=== PATIENT | female | born 1975 | race Two or more races ===

== ENCOUNTER 2019-07-12 17:27 | Emergency (ER) | payer MEDICAID, OTHER ==
[~2019-07-12] VITALS: Ht 165.1 cm; Wt 88.6 kg
[2019-07-12] MEDS ORDERED: SODIUM CHLORIDE 0.9% 1,000 ML IV ONE ×2 (19:00→21:30)
[2019-07-12 19:05] LABS: Basophils # (auto) 0 uL; Basophils % (auto) 0.4 % (0.0-2.0); Eosinophils # (auto) 0 uL; Eosinophils % (auto) 0.4 % (0.0-7.0); Hematocrit 39.5 % (36.0-46.0); Hemoglobin 13.4 g/dL (12.2-16.2); Lymphocytes % (auto) 20.3 % (10.0-50.0); Mean Corpuscular Hgb Conc. 33.8 g/dL (32.0-36.0); Mean Corpuscular Volume 85.8 fL (80.0-100.0); Monocytes # (auto) 0.6 uL; Monocytes % (auto) 5.6 % (0.0-12.0); Neutrophils # (auto) 7.3 uL; Neutrophils % (auto) 73.3 % (37.0-80.0); Nucleated Red Blood Cells % 0.1 %; Platelet Count (auto) 256 10^3/uL (140-450); Red Cell Distribution Width 14.5 % (11.8-14.3)
[2019-07-12 19:28] LABS: Albumin 3.7 g/dL (3.4-5.0); Anion Gap 8 (5-15); Blood Alcohol < 3.0 mg/dL (0-5); Blood Urea Nitrogen 18 mg/dL (7-18); Calcium 8.3 mg/dL (8.5-10.1); Carbon Dioxide 24 mmol/L (21-32); Chloride 103 mmol/L (98-107); Glucose 362 mg/dL (74-106); Potassium 3.9 mmol/L (3.5-5.1); Sodium 135 mmol/L (136-145)
[2019-07-12 19:32] LABS: Alanine Aminotransferase 50 U/L (13-56); Alkaline Phosphatase 204 U/L (45-117); Aspartate Aminotransferase 32 U/L (15-37); BUN/Creatinine Ratio 24.3; Bilirubin, Total 0.2 mg/dL (0.2-1.0); GFR African American 109 mL/min; GFR Non-African American 90 mL/min; Total Protein 7.6 g/dL (6.4-8.2)
[2019-07-12 23:04] LABS: Urine Bacteria FEW /hpf (None Seen); Urine Blood Negative /uL (Negative); Urine Specific Gravity 1.031 (1.001-1.035); Urine WBC 1 /hpf (0 - 5)
[2019-07-12 23:13] LABS: Alcohol, Urine < 3.0 mg/dL (0-5); Amphetamine Screen, Urine POSITIVE (NEGATIVE); Barbiturate Scree,Urine NEGATIVE (NEGATIVE); Benzodiazephine Screen, Urine NEGATIVE (NEGATIVE); Cannabinoid Screen, Urine POSITIVE (NEGATIVE); Cocaine Screen, Urine NEGATIVE (NEGATIVE); Opiate Scree,Urine NEGATIVE (NEGATIVE); Phencyclidine Screen, Urine NEGATIVE (NEGATIVE)
[2019-07-12 23:45] LABS: Urine Pregnacy Test Negative (Negative)
[2019-07-13 00:45] VITALS: BP 145/87
== END 2019-07-13 00:47 ==
LOC: ER 17:31
DX: E11.65 Type 2 diabetes mellitus with hyperglycemia (principal); F41.9 Anxiety disorder, unspecified; Z91.14 Patient's other noncompliance with medication regimen
CPT/HCPCS: 36415; 80053; 80307; 80320; 81001; 81025; 82010; 82962; 85025; 96360; 96361; 99283; J7030

== ENCOUNTER 2021-03-07 16:43 | Emergency (ER) | payer MEDICAID ==
[~2021-03-07] VITALS: Ht 165.1 cm; Wt 104.3 kg
[2021-03-07 16:43] VITALS: BP 132/86
== END 2021-03-07 19:11 | disposition home or self-care (01) ==
LOC: ER 16:43
DX: S70.262A Insect bite (nonvenomous), left hip, initial encounter (principal); E11.9 Type 2 diabetes mellitus without complications; E66.9 Obesity, unspecified; Z68.38 Body mass index [BMI] 38.0-38.9, adult; W57.XXXA Bitten or stung by nonvenomous insect and other nonvenomous arthropods, initial encounter; Y93.89 Activity, other specified; Y92.89 Other specified places as the place of occurrence of the external cause; Y99.8 Other external cause status

== ENCOUNTER 2021-09-15 01:21 | Emergency (ER) | payer MEDICAID ==
[~2021-09-15] VITALS: Ht 165.1 cm; Wt 90.7 kg
[2021-09-15] MEDS ORDERED: CLIN300C8 PO (01:45)
[2021-09-15] MEDS ORDERED: IBUP800T27 PO (01:45)
[2021-09-15 02:33] VITALS: BP 162/99
== END 2021-09-15 02:37 | disposition home or self-care (01) ==
LOC: ER 01:26
DX: L02.212 Cutaneous abscess of back [any part, except buttock and flank] (principal); E11.9 Type 2 diabetes mellitus without complications; Z79.1 Long term (current) use of non-steroidal anti-inflammatories (NSAID); Z79.2 Long term (current) use of antibiotics

== ENCOUNTER 2022-01-05 00:28 | Emergency (ER) | payer MEDICAID ==
[~2022-01-05] VITALS: Ht 165.1 cm; Wt 95.3 kg
[~2022-01-05 00:28] MED LIST: CLIN300C8 PO; IBUP800T27 PO
[2022-01-05 06:42] VITALS: BP 142/85
[2022-01-05] MEDS ORDERED: cefTRIAXone SOD 1,000 MG VL IM ONE (06:45)
[2022-01-05] MEDS ORDERED: ACETAMINOPHEN 500 MG TAB PO ONE (06:45)
[2022-01-05] MEDS ORDERED: CEPH500C PO (06:59)
[2022-01-05] MEDS ORDERED: ACET-1080 PO (06:59)
== END 2022-01-05 07:16 | disposition home or self-care (01) ==
LOC: ER 00:28
DX: S20.162A Insect bite (nonvenomous) of breast, left breast, initial encounter (principal); E11.9 Type 2 diabetes mellitus without complications; F17.210 Nicotine dependence, cigarettes, uncomplicated; Z79.2 Long term (current) use of antibiotics; Z79.1 Long term (current) use of non-steroidal anti-inflammatories (NSAID); Z79.899 Other long term (current) drug therapy; W57.XXXA Bitten or stung by nonvenomous insect and other nonvenomous arthropods, initial encounter; Y93.89 Activity, other specified; Y92.89 Other specified places as the place of occurrence of the external cause; Y99.8 Other external cause status
CPT/HCPCS: 96372; 99283; J0696

== ENCOUNTER 2022-11-04 18:49 | Emergency (ER) | payer MEDICAID ==
[~2022-11-04] VITALS: Ht 165.1 cm; Wt 96.7 kg
[~2022-11-04 18:49] MED LIST changes: +ACET-1080 PO; +CEPH500C PO
[2022-11-04 18:50] VITALS: BP 148/96
[2022-11-04] MEDS ORDERED: LIDOCAINE 1% HCL (LOCAL ANESTH.) INJ 20ML MDV IJ ONE (20:45)
[2022-11-04] MEDS ORDERED: CEPH250C28 PO (22:06)
[2022-11-04] MEDS ORDERED: IBUP800T26 PO (22:08)
== END 2022-11-04 22:45 | disposition home or self-care (01) ==
LOC: ER 18:49
DX: S81.811A Laceration without foreign body, right lower leg, initial encounter (principal); E11.9 Type 2 diabetes mellitus without complications; F17.210 Nicotine dependence, cigarettes, uncomplicated; Z79.1 Long term (current) use of non-steroidal anti-inflammatories (NSAID); Z79.2 Long term (current) use of antibiotics; Z79.899 Other long term (current) drug therapy; W01.118A Fall on same level from slipping, tripping and stumbling with subsequent striking against other sharp object, initial encounter; Y93.89 Activity, other specified; Y92.89 Other specified places as the place of occurrence of the external cause; Y99.8 Other external cause status
CPT/HCPCS: 12002; 99283; J2001

== ENCOUNTER 2023-09-25 01:16 | Emergency (ER) | payer MEDICAID ==
[~2023-09-25] VITALS: Ht 162.6 cm; Wt 79.0 kg
[2023-09-25 01:16] VITALS: BP 176/93; PULSE 107; RESP 20; O2SAT 98
[~2023-09-25 01:16] MED LIST changes: +CEPH250C2 PO; +CLIN300C70 PO; -CLIN300C8 PO; +IBUP-1455 PO; +IBUP-1456 PO; -IBUP800T27 PO
[2023-09-25] MEDS ORDERED: BACDST PO (07:32)
== END 2023-09-25 04:39 | disposition left against medical advice (07) ==
LOC: ER 01:16
DX: L02.811 Cutaneous abscess of head [any part, except face] (principal); Z53.21 Procedure and treatment not carried out due to patient leaving prior to being seen by health care provider

== ENCOUNTER 2023-09-25 05:38 | Emergency (ER) | payer MEDICAID ==
[~2023-09-25] VITALS: Ht 165.1 cm; Wt 79.5 kg
[2023-09-25 07:23] VITALS: BP 174/97; PULSE 112; RESP 18; TEMP 98; O2SAT 98
[2023-09-25] MEDS ORDERED: LIDOCAINE 1% HCL (LOCAL ANESTH.) INJ 20ML MDV IJ ONE (07:30)
[2023-09-25] MEDS ORDERED: BACDST PO (07:32)
== END 2023-09-25 07:59 | disposition home or self-care (01) ==
LOC: ER 05:38
DX: L02.01 Cutaneous abscess of face (principal); E11.9 Type 2 diabetes mellitus without complications; F32.9 Major depressive disorder, single episode, unspecified; F17.210 Nicotine dependence, cigarettes, uncomplicated; F15.90 Other stimulant use, unspecified, uncomplicated; Z79.899 Other long term (current) drug therapy
CPT/HCPCS: 10060; 99283; J2001

== ENCOUNTER 2025-01-20 12:49 | Inpatient (IN) | payer MEDICAID ==
[~2025-01-20] VITALS: Ht 165.1 cm; Wt 67.1 kg
[~2025-01-20 12:49] MED LIST changes: +BACDST PO; +CLIN1CAP70 PO; -CLIN300C70 PO
--- NOTE | 2025-01-20 14:11 | ED.PDOC ---
GI ASSESSMENT HPI Comments 50-year-old female presents to the ED with a c/o nausea, vomiting, and abdominal pain. Patient states that her pain is localized to her epigastric region, nonradiating, describes as aching, and rates her pain a 9/10. Patient mentions that she is on Ozempic and believes that is the cause of her symptoms. Patient mentions that she is having intermittent episodes of vomiting. Patient is requesting IV fluids. Patient endorses marijuana usage. Chief Complaint: Nausea/Vomiting Time Seen by MD: 13:57 Primary Care Provider: SIMONS Reviewed Notes: Medications, Allergies Allergies: Coded Allergies: NO KNOWN ALLERGIES (Unverified , 04/21/12) Home Meds Active Scripts Sulfamethoxazole W/Trimethopri (Bactrim Ds Tablet) 1 Tab Tb, 1 TAB PO BID for 5 Days, #10 TAB Prov:CORNELIUS HENSLEY PAC 09/25/23 Ibuprofen Micronized (Ibuprofen) 800 Mg Tab, 800 MG PO TID for 10 Days, #30 TAB Prov:ALEX MEHTA FOOD SERVICE CLERK 11/04/22 Cephalexin Base (Cephalexin) 250 Mg Cap, 250 MG PO QID for 10 Days, #40 CAP Prov:ALEX MEHTA FOOD SERVICE CLERK 11/04/22 Acetaminophen (Tylenol 8 Hour Arthritis) 650 Mg Tab, 650 MG PO TID, #24 TAB Prov:RAJWINDER HOOD 01/05/22 Cephalexin Monohydrate (Cephalexin) 500 Mg Cap, 500 MG PO QID for 8 Days, #32 CAP Prov:RAJWINDER HOOD 01/05/22 Ibuprofen (Ibuprofen) 800 Mg Tab, 1 TAB PO TID for 10 Days, #30 TAB 0 Refills Prov:NIRU RAMIREZ 09/15/21 Clindamycin Hcl (Clindamycin Hcl) 300 Mg Cap, 300 MG PO TID for 7 Days, #21 CAP 0 Refills Prov:NIRU RAMIREZ 09/15/21 Information Source: Patient Mode of Arrival: Ambulatory Timing: Days Duration: Since onset Prehospital treatment: None Quality: Aching Vomitus: Food Particles Stool: Normal Severity: Moderate Recent: None Recent Hx of: None Pain Location: Epigastric Associated sign and symptoms: Nausea, Vomiting, Abdominal Pain Past Medical History PAST MEDICAL HISTORY: Depression, DM Surgical History: Denies all surgeries BLOOD BANK CUSTODIAN History: No Pertinent BLOOD BANK CUSTODIAN History Family History Family History: Reviewed,noncontributory to illness Social History Smoker: Cigarettes Alcohol: Denies ETOH Use Drugs: Marijuana Lives In: Home Constitutional: denies: chills, diaphoresis, fatigue, fever, malaise, sweats, weakness, others EENTM: denies: blurred vision, double vision, ear bleeding, ear discharge, ear drainage, ear pain, ear ringing, eye pain, eye redness, hearing loss, mouth pain, mouth swelling, nasal discharge, nose bleeding, nose congestion, nose pain, photophobia, tearing, throat pain, throat swelling, voice changes, others Respiratory: denies: cough, hemoptysis, orthopnea, SOB at rest, shortness of breath, SOB with excertion, stridor, wheezing, others Cardiovascular: denies: chest pain, dizzy spells, diaphoresis, Dyspnea on exertion, edema, irregular heart beat, left arm pain, lightheadedness, palpitations, PND, syncope, others Gastrointestinal: reports: abdominal pain, nausea, vomiting; denies: abdomen distended, blood streaked bowels, constipated, diarrhea, dysphagia, difficulty swallowing, hematemesis, melena, poor appetite, poor fluid intake, rectal bleeding, rectal pain, others Genitourinary: denies: abnormal vagina bleeding, burning, dyspareunia, dysuria, flank pain, frequency, hematuria, incontinence, pain, , vagina discharge, urgency, others Neurological: denies: dizziness, fainting, headache, left sided numbness, left sided weakness, numbness, paresthesia, pre-existing deficit, right sided numbness, right sided weakness, seizure, speech problems, tingling, tremors, weakness, others Musculoskeletal: denies: back pain, gout, joint pain, joint swelling, muscle pain, muscle stiffness, neck pain, others Integumetry: denies: bruises, change in color, change in hair/nails, dryness, laceration, lesions, lumps, rash, wounds, others Allergic/Immunocompromised: denies: Difficulty Healing, Frequent Infections, Hives, Itching, others Hematologic/Lymphatic: denies: anemia, blood clots, easy bleeding, easy bruising, swollen glands, others Endocrine: denies: excessive hunger, excessive sweating, excessive thirst, excessive urination, flushing, intolerance to cold, intolerance to heat, unexplained weight gain, unexplained weight loss, others Psychiatric: denies: anxiety, bipolar disorder, depression, hopeless, panic disorder, schizophrenia, sleepless, suicidal, others All Other Systems: Reviewed and Negative Physical Exam General Appearance: No Apparent Distress, Normal HEENT: Normal ENT Inspection, Pharynx Normal, TMs Normal Neck: Full Range of Motion, Non-Tender, Normal, Normal Inspection Respiratory: Chest Non-Tender, Lungs Clear, No Accessory Muscle Use, No Respiratory Distress, Normal Breath Sounds Cardiovascular: No Edema, No JVD, No Murmur, No Gallop, Normal Peripheral Pulses, Regular Rate/Rhythm Breast Exam: Deferred Gastrointestinal: Abnormal Bowel Sounds, No Organomegaly, Non Tender, No Pulsatile Mass, Soft Genitalia: Deferred Pelvic: Deferred Rectal: Deferred Extremities: No calf tenderness, Normal capillary refill, Normal inspection, Normal range of motion, Non-tender, No pedal edema Musculoskeletal : Apperance: Normal Neurologic: Alert, ball ender II-XII nml as Tested, No Motor Deficits, Normal Affect, Normal Mood, No Sensory Deficits Cerebellar Function: Normal Reflexes: Normal Skin: Dry, Normal Color, Warm Lymphatic: No Adenopathy Was a procedure done? Was a procedure done?: No GI differential Dx Differential Diagnosis: Appendicitis, Complete , Incomplete , Inevitable , Missed , Threatened , Abruptio placentae, Bowel Obstruction, Constipation, Ectopic , Esophagitis, Gastritis/PUD, Gastroenteritis, Hernia, Hepatitis, Inflammatory BD, Ischemic Bowel, Dehydra tion, Diabetes/ DKA, Drug toxicity, Electrolyte Imbalance, Food Poisoning, , Bacterial, Parasitic, Viral, Hypovolemia, Impaction, Renal Failure X-Ray, Labs, Meds, VS Vital Signs Date Time Temp Pulse Resp B/P (MAP) Pulse Ox O2 Delivery O2 Flow Rate FiO2 01/20/25 14:09 98.7 90 17 160/106 (124) 97 98.7 01/20/25 13:13 98.8 100 18 133/98 (110) 100 98.8 Lab Test 01/20/25 14:15 01/20/25 14:01 Range/Units Sodium Level 130 L 136-145 mmol/L Potassium Level 3.1 L 3.5-5.1 mmol/L Chloride Level 81 L 98-107 mmol/L Carbon Dioxide Level 39 H 20-31 mmol/L Anion Gap 10 5-15 Blood Urea Nitrogen 36 H 9-23 mg/dL Creatinine 1.57 H 0.550-1.02 mg/dL Glomerular Filtration Rate Calc 40 >90 mL/min BUN/Creatinine Ratio 22.9 H 10.0-20.0 Serum Glucose 299 H 74-106 mg/dL Calcium Level 11.3 H 8.7-10.4 mg/dL Urine Color Yellow Yellow Urine Clarity Turbid H Clear Urine pH 5.5 5.0-9.0 Urine Specific [place] 1.024 1.001-1.035 Urine Protein Trace H Negative Urine Ketones Negative Negative Urine Blood Negative Negative /uL Urine Nitrite Negative Negative Urine Bilirubin Negative Negative Urine Urobilinogen Normal Negative mg/dL Urine Leukocyte Esterase Negative Negative /uL Urine RBC 1 0 - 4 /hpf Urine Microscopic WBC 4 0-5 /HPF Urine Squamous Epithelial Cells Mod <5 /hpf Urine Bacteria Few H None Seen /hpf Urine Hyaline Casts Few 0 - 2 /lpf Urine Mucus Few None Seen Urine Glucose 4+ H Normal mg/dL Urine Test Negative Negative Time of 1ST Reevaluation: 14:27 Reevaluation 1ST: Unchanged Time of 2ND Reevaluation: 15:50 Reevaluation 2ND: Unchanged Patient Education/Counseling: Diagnosis, Treatment, Prognosis, Need For Follow Up Family Education/Counseling: No Family Present Additional Information pt is diabetic and has intractable nausea. her renal function is also worsened. she is clinically dehydrated, with diabetes, and inability to keep oral intake. she will be admitted Departure 1 Departure Time of Disposition: 15:51 Impression: Primary Impression: Intractable nausea Additional Impressions: Renal failure Qualified Codes: N17.9 - Acute kidney failure, unspecified Hypokalemia Uncontrolled diabetes mellitus Qualified Codes: E11.65 - Type 2 diabetes mellitus with hyperglycemia Disposition: ADMITTED INPATIENT Admit to: Med Surg Condition: Stable Discharged With: Self Critical Care Note Critical Care Time?: Yes (55 min-critical care time only) Critical care comment: due to concerns for patient's condition deteriorating, the care required my highest level of attention and readiness to intervene. i assessed the patient's condition, ordered the proper tests and treatments, reassessed for response and reviewed the results. i communicated with medical personnel and formulated a plan of care. total critical care time does not include any procedures Stability Stability form required: No Heart Score Heart Score: Heart Score Response (Comments) Value History N/A 0 EKG N/A 0 Age N/A 0 Risk Factors N/A 0 Troponin N/A 0 Total 0 I personally scribed for KATIE MAC MD ([email or web address]) on 01/20/25 at 14:11. Electronically submitted by Raza Rabago ([email or web address]). KATIE MAC MD January 20, 2025 14:11
[2025-01-20 14:12] LABS: Urine Bacteria FEW /hpf (None Seen); Urine Blood Negative /uL (Negative); Urine Clarity Turbid (Clear); Urine Color Yellow (Yellow); Urine Hyaline Cast FEW /lpf (0 - 2); Urine Mucus FEW (None Seen); Urine Protein, UAD TRACE (Negative); Urine Specific Gravity 1.024 (1.001-1.035); Urine Squamous Epithelial Cell MOD /hpf (<5); Urine Urobilinogen Normal (Negative); Urine WBC 4 /HPF (0-5); Urine pH 5.5 (5.0-9.0)
[2025-01-20 14:51] LABS: Anion Gap 10 (5-15); Carbon Dioxide 39 mmol/L (20-31); Chloride 81 mmol/L (98-107); Potassium 3.1 mmol/L (3.5-5.1); Sodium 130 mmol/L (136-145)
[2025-01-20 14:53] LABS: Calcium 11.3 mg/dL (8.7-10.4)
[2025-01-20 14:56] LABS: BUN/Creatinine Ratio 22.9 (10.0-20.0); Blood Urea Nitrogen 36 mg/dL (9-23); Glucose 299 mg/dL (74-106)
[2025-01-20] MEDS ORDERED: DEXTROSE (50%) 50ML SYRG IV PRN (16:00)
[2025-01-20 16:11] LABS: Amphetamine Screen, Urine Pos (NEGATIVE); Barbiturate Scree,Urine Neg (NEGATIVE); Benzodiazephine Screen, Urine Neg (NEGATIVE); Cannabinoid Screen, Urine Pos (NEGATIVE); Cocaine Screen, Urine Neg (NEGATIVE); Opiate Scree,Urine Neg (NEGATIVE); Phencyclidine Screen, Urine Neg (NEGATIVE)
[2025-01-20] MEDS: SODIUM CHLORIDE 0.9% 1,000 ML IV ONE (16:16)
[2025-01-20] MEDS ORDERED: SERT-160 PO (16:17)
[2025-01-20] MEDS ORDERED: ATOR20TA50 PO (16:17)
[2025-01-20] MEDS ORDERED: LISI20TA56 PO (16:17)
[2025-01-20] MEDS ORDERED: ARIP5TAB51 (16:17)
[2025-01-20] MEDS ORDERED: PANT40T PO (16:17)
[2025-01-20] MEDS: ONDANSETRON HCL 4 MG/2 ML VIAL IV ONE (16:17)
--- NOTE | 2025-01-20 16:41 | DVHHP2 ---
History of Present Illness Reason for Visit: Abdominal pain with nausea and vomiting History of Present Illness Soraida Wang is a 50-year-old female with past medical history of diabetes, depression, and who presents to the ED with abdominal pain with nausea and vomiting. She reports that the pain is 10/10 pressure-like and constant. She reports that she took his a PICC on and shortly afterwards developed symptoms. Patient states that she has been unable to hold down any food or liquids. Patient also reports that she takes Zoloft and Abilify for her depression. She also endorses that she smokes occasionally and uses marijuana. Patient denies any chest pain, shortness of breath, fever, chills, lightheadedness, weakness, dizziness, diarrhea, dysuria, recent trauma or injury, recent sick contacts, recent travels, or recent ingestion of spoiled food. Psych: Depression Endocrine: Diabetes Past Surgical History: Family History: None Smoke: <1 pack per day ALCOHOL: none Drugs: Marijuana Lives: with Family Domestic Violence: Neg Review of Systems Gastrointestinal: Nausea, Vomiting, Abdominal Pain Allergies: Coded Allergies: NO KNOWN ALLERGIES (Unverified , 04/21/12) Medications Current Medications Medications Dose Ordered Sig/Kd Route Start Time Stop Time Status Last Admin Dose Admin Potassium Chloride 100 ml @ 50 mls/hr Q2H IV 01/20/25 16:00 01/20/25 19:59 UNV Sodium Chloride 1,000 ml @ 60 mls/hr [id number] IV 01/20/25 16:00 UNV Acetaminophen/ Hydrocodone Bitart 1 tab Q4HP PRN PO 01/20/25 16:00 UNV Ondansetron HCl 4 mg Q4HP PRN IV 01/20/25 16:00 UNV Enoxaparin Sodium 40 mg DAILY SC 01/21/25 10:00 UNV Acetaminophen 650 mg Q6HP PRN PO 01/20/25 16:00 UNV Morphine Sulfate 2 mg Q4HPRN PRN IV 01/20/25 16:00 UNV Diagnostic Test (Pha) 1 strip ACHS 01/20/25 17:00 UNV Insulin Human Regular ACHS SC 01/20/25 17:00 UNV Dextrose 50 ml UD PRN IV 01/20/25 16:00 UNV Atorvastatin Calcium 20 mg DAILY PO 01/21/25 10:00 UNV Lisinopril 20 mg DAILY PO 01/21/25 10:00 UNV Pantoprazole Sodium 40 mg DAILY PO 01/21/25 10:00 UNV Patient Own Medication 1 tab DAILY PO 01/21/25 10:00 UNV Exam Vital Signs Vital Signs Date Time Temp Pulse Resp B/P (MAP) Pulse Ox O2 Delivery O2 Flow Rate FiO2 01/20/25 14:09 98.7 90 17 160/106 (124) 97 98.7 General Appearance: Alert, Oriented X3, Cooperative, mild distress HEENT: Atraumatic, PERRLA, EOMI, Mucous membr. moist/pink Respiratory: Clear to auscultation, Normal air movement Cardiovascular: Regular rate, Normal S1, Normal S2 Abdominal: Soft Extremities: No clubbing, No cyanosis, Normal pulses Skin: No significant lesion Neuro: Normal speech, Strength at 5/5 X4 ext, Normal tone, Sensation intact Psych/Mental Status: Mental status NL, Mood NL Labs/Xrays Labs Test 01/20/25 14:15 01/20/25 14:01 Range/Units Sodium Level 130 L 136-145 mmol/L Potassium Level 3.1 L 3.5-5.1 mmol/L Chloride Level 81 L 98-107 mmol/L Carbon Dioxide Level 39 H 20-31 mmol/L Anion Gap 10 5-15 Blood Urea Nitrogen 36 H 9-23 mg/dL Creatinine 1.57 H 0.550-1.02 mg/dL Glomerular Filtration Rate Calc 40 >90 mL/min BUN/Creatinine Ratio 22.9 H 10.0-20.0 Serum Glucose 299 H 74-106 mg/dL Calcium Level 11.3 H 8.7-10.4 mg/dL Urine Color Yellow Yellow Urine Clarity Turbid H Clear Urine pH 5.5 5.0-9.0 Urine Specific [place] 1.024 1.001-1.035 Urine Protein Trace H Negative Urine Ketones Negative Negative Urine Blood Negative Negative /uL Urine Nitrite Negative Negative Urine Bilirubin Negative Negative Urine Urobilinogen Normal Negative mg/dL Urine Leukocyte Esterase Negative Negative /uL Urine RBC 1 0 - 4 /hpf Urine Microscopic WBC 4 0-5 /HPF Urine Squamous Epithelial Cells Mod <5 /hpf Urine Bacteria Few H None Seen /hpf Urine Hyaline Casts Few 0 - 2 /lpf Urine Mucus Few None Seen Urine Glucose 4+ H Normal mg/dL Urine Test Negative Negative Urine Opiates Screen Neg NEGATIVE Urine Fentanyl Screen Neg NEGATIVE Urine Barbiturates Screen Neg NEGATIVE Urine Phencyclidine Screen Neg NEGATIVE Urine Amphetamines Screen Pos NEGATIVE Urine Benzodiazepines Screen Neg NEGATIVE Urine Cocaine Screen Neg NEGATIVE Urine Cannabinoids Screen Pos NEGATIVE Assessment/Plan Assessment/Plan Assessment Intractable abdominal pain with nausea and vomiting Tobacco use Marijuana use History of diabetes History of depression History of Plan Admit to med surge Antiemetics Pain management Potassium chloride given in ED NS 1 L given ED HCG UA UDS Hemoglobin A1c ISS and Accu-Cheks CT abdomen and pelvis ordered Diet Home medications reconciled DVT prophylaxis-Lovenox PUD prophylaxis-PPIs Discussed plan of care with patient and nurse Counseled patient on cessation of tobacco use Counseled patient on cessation of marijuana use Plan discussed with: Patient My Orders Orders - MAYO KOENIG ARRESTING GEAR OPERATOR Procedure Category Date Status Time Ct Ab Pel Wo Con-No CT 01/20/25 Logged Oral Or Iv 15:59 Admit ADMIT 01/20/25 Transmitted 15:59 Allergies BILL 01/20/25 In Process 15:59 Code Status CODE 01/20/25 Transmitted 15:59 Sodium Chloride 0.9% PHA 01/20/25 Logged 16:00 Hydrocodone-Acet PHA 01/20/25 Logged 5/325mg Tab ([place] 16:00 Ondansetron Hcl PHA 01/20/25 Logged (Zofran) 16:00 Enoxaparin Sodium PHA 01/21/25 Logged (Lovenox) 10:00 Complete Blood Count LAB 01/21/25 Verified 04:00 Comprehensive LAB 01/21/25 Verified Metabolic Panel 04:00 Cardiac DIET 01/20/25 Transmitted Diet-2gna,Lofat,Lochol Dinner Acetaminophen Tablet PHA 01/20/25 Logged (Tylenol Tablet) 16:00 Morphine Sulfate PHA 01/20/25 Logged Injection 16:00 Glucose Blood PHA 01/20/25 Logged (Accu-Chek Comfort 17:00 Insulin R (Human) PHA 01/20/25 Logged (Insulin R) 17:00 Dextrose 50% Syringe PHA 01/20/25 Logged 16:00 Hemoglobin A1c LAB 01/20/25 In Process 15:59 Atorvastatin (Lipitor) PHA 01/21/25 Logged 10:00 Lisinopril Tablet PHA 01/21/25 Logged (Zestril Tablet) 10:00 Pantoprazole Tablet PHA 01/21/25 Logged (Protonix Tablet) 10:00 (Nf) Sertraline Hcl PHA 01/21/25 Logged 10:00 Date of Service: January 20, 2025 Billing Provider: MAYO KOENIG Common Visit Codes: [id number] INP/OBS CARE (HIGH) MAYO KOENIG January 20, 2025 16:41
[2025-01-20 17:00] VITALS: BP 156/69; PULSE 77; RESP 19; TEMP 98.1; O2SAT 99
--- NOTE | 2025-01-20 17:09 | DVH ---
Exam: CT CT AB PEL WO CON-NO ORAL OR IV History: abd pain Comparison Study: None TECHNIQUE: Multidetector CT of the abdomen was performed from lung bases to pubic symphysis. Imaging was performed without IV contrast. Axial, coronal and sagittal multiplanar reformats were obtained fr om the axial data set by the technologist. Radiation Dose Information: CT Dose: CTDI volume is 7.68 mGy. Dose-length product is 404.79 mGy*cm FINDINGS: Evaluation of solid organs is limited due to lack of intravenous contrast use. Findings: Lung Bases: No acute or significant lung base finding. Normal heart size. No pleural or pericardial effusion. Liver: The liver is normal in size. No focal lesions. Gallbladder and Biliary Tree: Unremarkable Spleen: Unremarkable Pancreas: The pancreas is grossly normal in appearance. Adrenal Glands: Unremarkable Kidneys: Kidneys are grossly normal without calculi or hydronephrosis. Bladder: Grossly unremarkable for degree of distention. Bowel: The stomach is grossly normal in appearance. Small bowel and colon are normal in caliber and d istribution. The stomach and small bowels are fluid filled and appears to be nondilated. The appendix is not visualized; however, no secondary findings of acute appendicitis identified. Ascites: Absent Lymphadenopathy: No mesenteric, retroperitoneal or periportal lymphadenopathy. Abdominal Wall and Mesentery: Unremarkable. Vasculature: The visualized abdominal aorta is normal in size and caliber. Evaluation of abdominal a nd pelvic vessels is limited due to lack of intravenous contrast. Pelvic Organs: Unremarkable Musculoskeletal: No aggressive focal bony lesions, acute fractures or dislocation. Soft tissues: Unremarkable IMPRESSION: 1. No acute abdominal or pelvic finding. 2. Nondilated stomach and small bowel fluid-filled suggestive of possible gastroenteritis versus adri y adynamic ileus. 3. 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 4. Radiation optimization: All CT scans at this facility use at least one of these dose optimization techniques: automated exposure control mA and/or kV adjustment per patient size (includes targeted e xams where dose is matched to clinical indication) or iterative reconstruction.
[2025-01-20] MEDS: ACCU-CHEK COMFORT CURVE STRIP VI SCH (18:36)
[2025-01-20] MEDS: SODIUM CHLORIDE 0.9% 1,000 ML IV SCH (18:36)
[2025-01-20] MEDS: InsuLIN REG 1unit/0.01ml Soln (100units/ml) SC SCH (18:39)
[2025-01-20] MEDS: POTASSIUM CHL 20MEQ/100ML 100 ML IV SCH (18:47)
[2025-01-20 20:54] VITALS: BP 148/88; PULSE 99; RESP 18; TEMP 98.2; O2SAT 99
[2025-01-20] MEDS: MORPHINE SULFATE INJ 2 MG/ml SYRG IV PRN (23:07)
[2025-01-21] VITALS (10 sets, daily range): BP systolic 140–173; BP diastolic 86–107; PULSE 83–97; RESP 17–19; TEMP 97.5–98.7; O2SAT 92–99
[2025-01-21] MEDS: LISINOPRIL 20 MG TAB PO SCH (05:50)
[2025-01-21] MEDS: ONDANSETRON HCL 4 MG/2 ML VIAL IV PRN (06:09)
[2025-01-21] MEDS: PANTOPRAZOLE 40 MG TAB PO SCH (06:09)
[2025-01-21 06:19] LABS: Basophils # (auto) 0 10 ^3/uL (0-0.2); Basophils % (auto) 0.2 % (0.0-2.0); Eosinophils # (auto) 0 10 ^3/uL (0-0.8); Eosinophils % (auto) 0.2 % (0.0-7.0); Hematocrit 42.4 % (36.0-46.0); Hemoglobin 14.4 g/dL (12.2-16.2); Lymphocytes # (auto) 2.5 10 ^3/uL (0.4-5.4); Lymphocytes % (auto) 15.7 % (10.0-50.0); Mean Corpuscular Volume 85.5 fL (80.0-100.0); Monocytes # (auto) 1.1 10 ^3/uL (0-1.3); Neutrophils # (auto) 12.3 10 ^3/uL (1.6-8.6); Neutrophils % (auto) 76.9 % (37.0-80.0); Nucleated Red Blood Cells % 0.1 %; Platelet Count (auto) 227 10^3/uL (140-450); Red Blood Cells 4.96 10^6/uL (4.0-5.20); Red Cell Distribution Width 13.8 % (11.8-14.3)
[2025-01-21 06:25] LABS: Alanine Aminotransferase 14 U/L (7-40); Albumin 4.6 g/dL (3.2-4.8); Alkaline Phosphatase 99 U/L (46-116); Anion Gap 7 (5-15); Aspartate Aminotransferase 13 U/L (13-40); BUN/Creatinine Ratio 23.2 (10.0-20.0); Blood Urea Nitrogen 22 mg/dL (9-23); Calcium 9.6 mg/dL (8.7-10.4)
[2025-01-21 06:26] LABS: Bilirubin, Total 0.6 mg/dL (0.2-1.0)
[2025-01-21 06:34] LABS: Carbon Dioxide 35 mmol/L (20-31); Chloride 91 mmol/L (98-107); Glucose 133 mg/dL (74-106); Potassium 3.4 mmol/L (3.5-5.1); Sodium 133 mmol/L (136-145)
--- NOTE | 2025-01-21 08:58 | DVHPNRES ---
Progress Note Date Seen: January 21, 2025 Resident Creating Document: TANIA HESTER RESIDENT Medical Necessity Reason Pt with a Central, PICC or Fol: No Subjective Review of Systems patient seen and examined at bed side complaining of nausea and vomiting, vomitus mainly clear last vomitinf few hours ago mainly started after taking ozempic on last epigastric burning pain no fever regular bowel and bladder Objective vital signs Vital Sign Date Time Temp Pulse Resp B/P (MAP) Pulse Ox O2 Delivery O2 Flow Rate FiO2 01/21/25 05:50 176/112 01/21/25 05:00 97.9 89 18 94 97.9 01/21/25 00:28 Room Air* 0 21 Total Intake and Output 01/20/25 01/20/25 01/21/25 15:00 23:00 07:00 Intake Total 400 ml Balance 400 ml medications Current Medications Medications Dose Ordered Sig/Kd Route Start Time Stop Time Status Last Admin Dose Admin Sodium Chloride 1,000 ml @ 60 mls/hr [id number] IV 01/20/25 16:00 01/20/25 18:36 60 MLS/HR Acetaminophen/ Hydrocodone Bitart 1 tab Q4HP PRN PO 01/20/25 16:00 Ondansetron HCl 4 mg Q4HP PRN IV 01/20/25 16:00 01/21/25 06:09 4 MG Enoxaparin Sodium 40 mg DAILY SC 01/21/25 10:00 Acetaminophen 650 mg Q6HP PRN PO 01/20/25 16:00 Morphine Sulfate 2 mg Q4HPRN PRN IV 01/20/25 16:00 01/20/25 23:07 2 MG Diagnostic Test (Pha) 1 strip ACHS 01/20/25 17:00 01/21/25 05:54 1 STRIP Insulin Human Regular ACHS SC 01/20/25 17:00 01/21/25 06:01 2 UNITS Dextrose 50 ml UD PRN IV 01/20/25 16:00 Atorvastatin Calcium 20 mg HS PO 01/21/25 22:00 Lisinopril 20 mg DAILY PO 01/21/25 10:00 01/21/25 05:50 20 MG Pantoprazole Sodium 40 mg DAILY PO 01/21/25 10:00 01/21/25 06:09 40 MG Sertraline HCl 50 mg DAILY PO 01/21/25 10:00 Examination General Appearance: Cooperative. Well developed. Well nourished. NAD Head Exam: Normal inspection Neck Exam: Normal inspection. Non-tender. Normal alignment Pulmonary/Respiratory: Chest non-tender. Clear bilateral breath sounds Cardiovascular/Chest: Regular rate and rhythm. No murmurs. No JVD. Peripheral Pulses: 2+ Radial (R). 2+ Radial (L). 2+ Pedal (R). 2+ Pedal (L) Abdominal Exam: Normal bowel sounds. Soft. Nontender. No hepatospenomegaly. No masses Ankle Exam: Negative ankle edema Lower extremities: Negative lower extremity edema Neuro/Mental Status: A&O x4. Coherent Thoughts/Psych: Normal thought pattern. Appropriate mood and affect. Good judgement and insight Appearance: In no acute distress Skin Exam: Normal inspection. Normal color. Warm. Dry laboratory and microbiology Laboratory Tests 01/21/25 04:55 Test 01/21/25 04:55 Range/Units Serum Glucose 133 H 74-106 mg/dL Problem List/Assessment/Plan Problem List/Assessment/Plan Intractable nausea and vomiting likely due to medication side effects/Ozempic, cannabinoid induced Intractable epigastric pain likely related to above Rule out pancreatitis Severe dehydration MELY due to VMN due to above Reactive leukocytosis , no sepsis Metabolic alkalosis likely due to severe dehydration Uncontrolled diabetes mellitus type 2, HGB A1c 7.5. Insulin-dependent. On Ozempic. Hypercalcemia due to dehydration History of depression, no suicidal ideation Polysubstance abuse, positive for meth and cannabinoid Plan/recommendation -continue IV hydration with normal saline 100 mL/hour, kidney function, electrolytes including calcium improving, hypokalemia, replenished with IV potassium -pending BNP, lipase level, TSH, lipid level, magnesium, parathyroid hormone level. -pending chest x-ray -uncontrolled hypertension: Lisinopril 20 mg p.o. daily. Labetalol 10 mg IV p.r.n. q.6 -uncontrolled diabetes mellitus, HGB A1c 7.5: Insulin-dependent dependent. Continue insulin sliding scale. -antiemetic: Ondansetron 4 mg IV Q four p.r.n. for nausea and vomiting -counseled on drug cessation including meth and cannabinoids -PUD prophylaxis with enoxaparin -DVT prophylaxis with Protonix Goals of care discussed greater than 24 minutes, full code status. Plan discussed with Dr Worrell Plan discussed with: Patient, Other Date of Service: January 21, 2025 Billing Provider: HARINI WORRELL MD Common Visit Codes: [id number] INP/OBS CARE(HIGH) TANIA HESTER RESIDENT January 21, 2025 08:58 HARINI WORRELL MD January 21, 2025 22:25
[2025-01-21 09:18] LABS: Magnesium 1.9 mg/dL (1.6-2.6)
[2025-01-21] MEDS: SERTRALINE HCL 50 MG TAB PO SCH (09:45)
[2025-01-21] MEDS: PANTOPRAZOLE 40 MG/10 ML VIAL INJ IV SCH (09:46)
[2025-01-21] MEDS: ENOXAPARIN SOD 40 MG/0.4 ML SYRINGE SC SCH (09:46)
[2025-01-21] MEDS: POTASSIUM CHL 20MEQ/100ML 100 ML IV SCH (09:47)
[2025-01-21] MEDS: LABETALOL HCL 20 MG/4 ML VL IV ONE (09:47)
[2025-01-21] MEDS: SODIUM CHLORIDE 0.9% 1,000 ML IV SCH (09:56)
--- NOTE | 2025-01-21 10:29 | DVH ---
CHEST RADIOGRAPH Indication: h/o meth use, epigastric pain Technique: Single frontal view of the chest was obtained COMPARISON: None FINDINGS: Lines and Tubes: None Lungs: Clear Pleura: No effusion. No pneumothorax. Cardiomediastinal contours: Unremarkable Bones: Unremarkable IMPRESSION: No acute disease.
[2025-01-21] MEDS: ATORVASTATIN 20 MG TAB PO SCH (21:12)
[2025-01-22] MEDS ORDERED: LISINOPRIL 20 MG TAB PO ONE (01:15)
[2025-01-22 01:21] VITALS: BP 174/103; PULSE 91; RESP 19; TEMP 97.3; O2SAT 96
[2025-01-22] MEDS: LISINOPRIL 20 MG TAB PO ONE (01:24)
[2025-01-22 05:00] VITALS: BP 193/121; PULSE 77; RESP 20; TEMP 97; O2SAT 98
[2025-01-22] MEDS: LABETALOL HCL 20 MG/4 ML VL IV PRN (06:09)
[2025-01-22 09:00] VITALS: BP 160/99; PULSE 75; RESP 18; TEMP 97.5; O2SAT 96
[2025-01-22 09:43] LABS: Potassium 3.5 mmol/L (3.5-5.1)
[2025-01-22 09:44] LABS: Anion Gap 8 (5-15); Calcium 9.6 mg/dL (8.7-10.4); Carbon Dioxide 29 mmol/L (20-31)
[2025-01-22 09:49] LABS: BUN/Creatinine Ratio 16.9 (10.0-20.0); Blood Urea Nitrogen 13 mg/dL (9-23)
[2025-01-22 09:51] LABS: Chloride 97 mmol/L (98-107); Glucose 143 mg/dL (74-106); Sodium 134 mmol/L (136-145)
[2025-01-22 10:09] LABS: Basophils # (auto) 0 10 ^3/uL (0-0.2); Basophils % (auto) 0.2 % (0.0-2.0); Eosinophils # (auto) 0 10 ^3/uL (0-0.8); Eosinophils % (auto) 0.1 % (0.0-7.0); Hematocrit 39.9 % (36.0-46.0); Hemoglobin 13.5 g/dL (12.2-16.2); Lymphocytes # (auto) 1.8 10 ^3/uL (0.4-5.4); Lymphocytes % (auto) 16.2 % (10.0-50.0); Mean Corpuscular Hemoglobin 28.9 pg (28.0-32.0); Mean Corpuscular Hgb Conc. 33.7 g/dL (32.0-36.0); Mean Corpuscular Volume 85.7 fL (80.0-100.0); Monocytes # (auto) 0.7 10 ^3/uL (0-1.3); Monocytes % (auto) 5.9 % (0.0-12.0); Neutrophils # (auto) 8.7 10 ^3/uL (1.6-8.6); Neutrophils % (auto) 77.6 % (37.0-80.0); Nucleated Red Blood Cells % 0.1 %; Platelet Count (auto) 204 10^3/uL (140-450); Red Blood Cells 4.66 10^6/uL (4.0-5.20); Red Cell Distribution Width 13.4 % (11.8-14.3); White Blood Cell 11.3 10^3/uL (4.4-10.8)
--- NOTE | 2025-01-22 12:03 | DVHPNRES ---
Progress Note Date Seen: January 22, 2025 Resident Creating Document: TANIA HESTER RESIDENT Medical Necessity Reason Pt with a Central, PICC or Fol: No Subjective Review of Systems patient seen and examined at bed side complaining of nausea and vomiting, vomitus mainly clear Patient found to have marijuana at bedside, advised to not take it mainly started after taking ozempic on last epigastric burning pain no fever regular bowel and bladder No any other new complaints Objective vital signs Vital Sign Date Time Temp Pulse Resp B/P (MAP) Pulse Ox O2 Delivery O2 Flow Rate FiO2 01/22/25 10:40 160/99 01/22/25 09:00 97.5 75 18 96 97.5 01/21/25 20:00 Room Air* 0 21 Total Intake and Output 01/21/25 01/21/25 01/22/25 15:00 23:00 07:00 Intake Total 230 ml 750 ml 800 ml Balance 230 ml 750 ml 800 ml medications Current Medications Medications Dose Ordered Sig/Kd Route Start Time Stop Time Status Last Admin Dose Admin Acetaminophen/ Hydrocodone Bitart 1 tab Q4HP PRN PO 01/20/25 16:00 Ondansetron HCl 4 mg Q4HP PRN IV 01/20/25 16:00 01/22/25 04:33 4 MG Enoxaparin Sodium 40 mg DAILY SC 01/21/25 10:00 01/22/25 10:39 40 MG Acetaminophen 650 mg Q6HP PRN PO 01/20/25 16:00 Morphine Sulfate 2 mg Q4HPRN PRN IV 01/20/25 16:00 01/20/25 23:07 2 MG Diagnostic Test (Pha) 1 strip ACHS 01/20/25 17:00 01/22/25 06:15 1 STRIP Insulin Human Regular ACHS SC 01/20/25 17:00 01/22/25 06:17 3 UNITS Dextrose 50 ml UD PRN IV 01/20/25 16:00 Atorvastatin Calcium 20 mg HS PO 01/21/25 22:00 01/21/25 21:12 20 MG Lisinopril 20 mg DAILY PO 01/21/25 10:00 01/22/25 10:40 20 MG Sertraline HCl 50 mg DAILY PO 01/21/25 10:00 01/22/25 10:38 50 MG Sodium Chloride 1,000 ml @ 100 mls/hr Q10H IV 01/21/25 08:45 01/22/25 06:18 100 MLS/HR Pantoprazole Sodium 40 mg DAILY IV 01/21/25 10:00 01/22/25 10:38 40 MG Labetalol HCl 10 mg Q4HPRN PRN IV 01/21/25 09:00 01/22/25 06:09 10 MG Examination General Appearance: Cooperative. Well developed. Well nourished. NAD Head Exam: Normal inspection Neck Exam: Normal inspection. Non-tender. Normal alignment Pulmonary/Respiratory: Chest non-tender. Clear bilateral breath sounds Cardiovascular/Chest: Regular rate and rhythm. No murmurs. No JVD. Peripheral Pulses: 2+ Radial (R). 2+ Radial (L). 2+ Pedal (R). 2+ Pedal (L) Abdominal Exam: Normal bowel sounds. Soft. Nontender. No hepatospenomegaly. No masses Ankle Exam: Negative ankle edema Lower extremities: Negative lower extremity edema Neuro/Mental Status: A&O x4. Coherent Thoughts/Psych: Normal thought pattern. Appropriate mood and affect. Good judgement and insight Appearance: In no acute distress Skin Exam: Normal inspection. Normal color. Warm. Dry laboratory and microbiology Laboratory Tests 01/22/25 09:29 Test 01/22/25 09:29 Range/Units Serum Glucose 143 H 74-106 mg/dL Problem List/Assessment/Plan Problem List/Assessment/Plan Intractable nausea and vomiting likely due to medication side effects/Ozempic, cannabinoid induced Intractable epigastric pain likely related to above Rule out pancreatitis Severe dehydration MELY due to VMN due to above Reactive leukocytosis , no sepsis Metabolic alkalosis likely due to severe dehydration Uncontrolled diabetes mellitus type 2, HGB A1c 7.5. Insulin-dependent. On Ozempic. Hypercalcemia due to dehydration History of depression, no suicidal ideation Polysubstance abuse, positive for meth and cannabinoid Plan/recommendation Found to have marijuana at bedside, strictly advised to not smoke marijuana. Continue with IV fluid. Electrolyte replenishment as needed. Continue conservative management for nausea and vomiting. -continue IV hydration with normal saline 100 mL/hour, kidney function, electrolytes including calcium improving, hypokalemia, replenished with IV potassium -uncontrolled hypertension: Lisinopril 20 mg p.o. daily. Labetalol 10 mg IV p.r.n. q.6 -uncontrolled diabetes mellitus, HGB A1c 7.5: Insulin-dependent dependent. Continue insulin sliding scale. -antiemetic: Ondansetron 4 mg IV Q four p.r.n. for nausea and vomiting -counseled on drug cessation including meth and cannabinoids -PUD prophylaxis with enoxaparin -DVT prophylaxis with Protonix Goals of care discussed greater than 24 minutes, full code status. Plan discussed with Dr Worrell Plan discussed with: Patient, Other (RN) My Orders My Orders Orders - TANIA HESTER RESIDENT Procedure Category Date Status Time Clear Liq Diet DIET 01/22/25 Transmitted Lunch Date of Service: January 22, 2025 Billing Provider: HARINI WORRELL MD Common Visit Codes: [id number] INP/OBS CARE(HIGH) TANIA HESTER RESIDENT January 22, 2025 12:03 HARINI WORRELL MD January 22, 2025 22:12
[2025-01-22 13:00] VITALS: BP 172/109; PULSE 81; RESP 17; TEMP 96.3; O2SAT 98
[2025-01-22] MEDS: SODIUM CHLORIDE 0.9% 1,000 ML IV SCH (15:45)
[2025-01-22] MEDS: NIFEdipine ER 30 MG TAB PO SCH (16:44)
[2025-01-22 21:00] VITALS: BP 162/101; PULSE 79; RESP 18; TEMP 97.5; O2SAT 97
[2025-01-22] MEDS: HYDROcodone-ACET 5/325MG TAB PO PRN (21:11)
[2025-01-23] VITALS (9 sets, daily range): BP systolic 134–176; BP diastolic 86–110; PULSE 78–91; RESP 16–18; TEMP 97–98.7; O2SAT 95–100
[2025-01-23 08:20] LABS: Basophils # (auto) 0.1 10 ^3/uL (0-0.2); Basophils % (auto) 0.8 % (0.0-2.0); Eosinophils # (auto) 0 10 ^3/uL (0-0.8); Eosinophils % (auto) 0.4 % (0.0-7.0); Hematocrit 43.3 % (36.0-46.0); Hemoglobin 14.8 g/dL (12.2-16.2); Lymphocytes # (auto) 1.9 10 ^3/uL (0.4-5.4); Lymphocytes % (auto) 18.2 % (10.0-50.0); Mean Corpuscular Hemoglobin 29.2 pg (28.0-32.0); Mean Corpuscular Hgb Conc. 34.2 g/dL (32.0-36.0); Mean Corpuscular Volume 85.3 fL (80.0-100.0); Monocytes # (auto) 0.6 10 ^3/uL (0-1.3); Monocytes % (auto) 6.1 % (0.0-12.0); Neutrophils # (auto) 7.6 10 ^3/uL (1.6-8.6); Neutrophils % (auto) 74.5 % (37.0-80.0); Nucleated Red Blood Cells % 0.1 %; Platelet Count (auto) 205 10^3/uL (140-450); Red Blood Cells 5.08 10^6/uL (4.0-5.20); Red Cell Distribution Width 13.7 % (11.8-14.3); White Blood Cell 10.2 10^3/uL (4.4-10.8)
[2025-01-23 08:24] LABS: Anion Gap 8 (5-15); Carbon Dioxide 27 mmol/L (20-31)
[2025-01-23 08:25] LABS: Calcium 9.8 mg/dL (8.7-10.4)
[2025-01-23 08:29] LABS: BUN/Creatinine Ratio 15.7 (10.0-20.0); Blood Urea Nitrogen 13 mg/dL (9-23)
[2025-01-23 08:30] LABS: Chloride 98 mmol/L (98-107); Glucose 209 mg/dL (74-106); Potassium 3.5 mmol/L (3.5-5.1); Sodium 133 mmol/L (136-145)
--- NOTE | 2025-01-23 17:30 | DVHPNRES ---
Progress Note Date Seen: January 23, 2025 Resident Creating Document: TANIA HESTER RESIDENT Medical Necessity Reason Pt with a Central, PICC or Fol: No Subjective Review of Systems Patient seen and examined at bed side Still nausea and vomiting No abdominal pain No any other acute symptoms. Objective vital signs Vital Sign Date Time Temp Pulse Resp B/P (MAP) Pulse Ox O2 Delivery O2 Flow Rate FiO2 01/23/25 16:55 97.0 78 16 176/104 (128) 98 97.0 01/22/25 20:00 Room Air* 0 21 Total Intake and Output 01/22/25 01/22/25 01/23/25 15:00 23:00 07:00 Intake Total 425 ml 500 ml Balance 425 ml 500 ml medications Current Medications Medications Dose Ordered Sig/Kd Route Start Time Stop Time Status Last Admin Dose Admin Acetaminophen/ Hydrocodone Bitart 1 tab Q4HP PRN PO 01/20/25 16:00 01/22/25 21:11 1 TAB Ondansetron HCl 4 mg Q4HP PRN IV 01/20/25 16:00 01/23/25 10:13 4 MG Enoxaparin Sodium 40 mg DAILY SC 01/21/25 10:00 01/23/25 10:05 40 MG Acetaminophen 650 mg Q6HP PRN PO 01/20/25 16:00 Morphine Sulfate 2 mg Q4HPRN PRN IV 01/20/25 16:00 01/20/25 23:07 2 MG Diagnostic Test (Pha) 1 strip ACHS 01/20/25 17:00 01/23/25 11:30 1 STRIP Insulin Human Regular ACHS SC 01/20/25 17:00 01/23/25 12:10 3 UNITS Dextrose 50 ml UD PRN IV 01/20/25 16:00 Atorvastatin Calcium 20 mg HS PO 01/21/25 22:00 01/22/25 21:09 20 MG Lisinopril 20 mg DAILY PO 01/21/25 10:00 01/23/25 10:06 20 MG Sertraline HCl 50 mg DAILY PO 01/21/25 10:00 01/23/25 10:06 50 MG Pantoprazole Sodium 40 mg DAILY IV 01/21/25 10:00 01/23/25 10:06 40 MG Labetalol HCl 10 mg Q4HPRN PRN IV 01/21/25 09:00 01/23/25 12:12 10 MG Sodium Chloride 1,000 ml @ 50 mls/hr Q20H IV 01/22/25 15:45 01/23/25 02:23 50 MLS/HR Nifedipine 30 mg DAILY PO 01/22/25 15:45 01/23/25 10:05 30 MG Examination General Appearance: Cooperative. Well developed. Well nourished. NAD Head Exam: Normal inspection Neck Exam: Normal inspection. Non-tender. Normal alignment Pulmonary/Respiratory: Chest non-tender. Clear bilateral breath sounds Cardiovascular/Chest: Regular rate and rhythm. No murmurs. No JVD. Peripheral Pulses: 2+ Radial (R). 2+ Radial (L). 2+ Pedal (R). 2+ Pedal (L) Abdominal Exam: Normal bowel sounds. Soft. Nontender. No hepatospenomegaly. No masses Ankle Exam: Negative ankle edema Lower extremities: Negative lower extremity edema Neuro/Mental Status: A&O x4. Coherent Thoughts/Psych: Normal thought pattern. Appropriate mood and affect. Good judgement and insight Appearance: In no acute distress Skin Exam: Normal inspection. Normal color. Warm. Dry laboratory and microbiology Laboratory Tests 01/23/25 08:10 Test 01/23/25 08:10 Range/Units Serum Glucose 209 H 74-106 mg/dL Problem List/Assessment/Plan Problem List/Assessment/Plan Intractable nausea and vomiting likely due to medication side effects/Ozempic, cannabinoid induced Intractable epigastric pain likely related to above Rule out pancreatitis Severe dehydration MELY due to VMN due to above Reactive leukocytosis , no sepsis Metabolic alkalosis likely due to severe dehydration Uncontrolled diabetes mellitus type 2, HGB A1c 7.5. Insulin-dependent. On Ozempic. Hypercalcemia due to dehydration History of depression, no suicidal ideation Polysubstance abuse, positive for meth and cannabinoid Plan/recommendation Continue current management. Found to have marijuana at bedside, strictly advised to not smoke marijuana. Continue with IV fluid. Electrolyte replenishment as needed. Continue conservative management for nausea and vomiting. -continue IV hydration with normal saline 100 mL/hour, kidney function, electrolytes including calcium improving, hypokalemia, replenished with IV potassium -uncontrolled hypertension: Lisinopril 20 mg p.o. daily. Labetalol 10 mg IV p.r.n. q.6 -uncontrolled diabetes mellitus, HGB A1c 7.5: Insulin-dependent dependent. Continue insulin sliding scale. -antiemetic: Ondansetron 4 mg IV Q four p.r.n. for nausea and vomiting -counseled on drug cessation including meth and cannabinoids -PUD prophylaxis with enoxaparin -DVT prophylaxis with Protonix Goals of care discussed greater than 24 minutes, full code status. Plan discussed with Dr Worrell Plan discussed with: Patient, Other (RN) Dietary Evaluation Review Comments: CCHO-60 Cardiac Diet, advance to texture as tolerated when medically feasible. Expected Outcomes/Goals: Avoid drugs, improved nutrient utilization Date of Service: January 23, 2025 Billing Provider: HARINI WORRELL MD Common Visit Codes: [id number] INP/OBS CARE(HIGH) TANIA HESTER RESIDENT January 23, 2025 17:30 HARINI WORRELL MD January 23, 2025 23:25
[2025-01-24] VITALS (7 sets, daily range): BP systolic 104–167; BP diastolic 59–111; PULSE 76–86; RESP 16–19; TEMP 97.5–99.1; O2SAT 95–100
--- NOTE | 2025-01-24 10:26 | DVHPNRES ---
Progress Note Date Seen: January 24, 2025 Resident Creating Document: TANIA HESTER RESIDENT Medical Necessity Reason Pt with a Central, PICC or Fol: No Subjective Review of Systems Patient seen and examined at bedside Patient continued to have nausea and vomiting Greenish color emesis Mild generalized abdominal pain as well No bowel movement in last three days Current anterior liquid diet Objective vital signs Vital Sign Date Time Temp Pulse Resp B/P (MAP) Pulse Ox O2 Delivery O2 Flow Rate FiO2 01/24/25 09:00 98.6 85 18 167/111 (129) 100 98.6 01/23/25 20:00 Room Air* 0 21 Total Intake and Output 01/23/25 01/23/25 01/24/25 15:00 23:00 07:00 Intake Total 1680 ml 700 ml Balance 1680 ml 700 ml medications Current Medications Medications Dose Ordered Sig/Kd Route Start Time Stop Time Status Last Admin Dose Admin Acetaminophen/ Hydrocodone Bitart 1 tab Q4HP PRN PO 01/20/25 16:00 01/23/25 20:59 1 TAB Ondansetron HCl 4 mg Q4HP PRN IV 01/20/25 16:00 01/24/25 06:20 4 MG Enoxaparin Sodium 40 mg DAILY SC 01/21/25 10:00 01/24/25 08:35 40 MG Acetaminophen 650 mg Q6HP PRN PO 01/20/25 16:00 Morphine Sulfate 2 mg Q4HPRN PRN IV 01/20/25 16:00 01/20/25 23:07 2 MG Diagnostic Test (Pha) 1 strip ACHS 01/20/25 17:00 01/24/25 06:14 1 STRIP Insulin Human Regular ACHS SC 01/20/25 17:00 01/24/25 06:14 2 UNITS Dextrose 50 ml UD PRN IV 01/20/25 16:00 Atorvastatin Calcium 20 mg HS PO 01/21/25 22:00 01/23/25 20:59 20 MG Lisinopril 20 mg DAILY PO 01/21/25 10:00 01/24/25 08:35 20 MG Sertraline HCl 50 mg DAILY PO 01/21/25 10:00 01/24/25 08:34 50 MG Pantoprazole Sodium 40 mg DAILY IV 01/21/25 10:00 01/24/25 08:34 40 MG Labetalol HCl 10 mg Q4HPRN PRN IV 01/21/25 09:00 01/23/25 20:58 10 MG Sodium Chloride 1,000 ml @ 50 mls/hr Q20H IV 01/22/25 15:45 01/23/25 21:00 50 MLS/HR Nifedipine 60 mg DAILY PO 01/25/25 10:00 Metronidazole 100 ml @ 100 mls/hr Q8HR IV 01/24/25 14:00 Examination General Appearance: Cooperative. Well developed. Well nourished. NAD Head Exam: Normal inspection Neck Exam: Normal inspection. Non-tender. Normal alignment Pulmonary/Respiratory: Chest non-tender. Clear bilateral breath sounds Cardiovascular/Chest: Regular rate and rhythm. No murmurs. No JVD. Peripheral Pulses: 2+ Radial (R). 2+ Radial (L). 2+ Pedal (R). 2+ Pedal (L) Abdominal Exam: Normal bowel sounds. Soft. Nontender. No hepatospenomegaly. No masses Ankle Exam: Negative ankle edema Lower extremities: Negative lower extremity edema Neuro/Mental Status: A&O x4. Coherent Thoughts/Psych: Normal thought pattern. Appropriate mood and affect. Good judgement and insight Appearance: In no acute distress Skin Exam: Normal inspection. Normal color. Warm. Dry laboratory and microbiology Laboratory Tests 01/23/25 08:10 Test 01/23/25 08:10 Range/Units Serum Glucose 209 H 74-106 mg/dL Problem List/Assessment/Plan Problem List/Assessment/Plan Intractable nausea and vomiting likely due to medication side effects/Ozempic, cannabinoid induced Intractable epigastric pain likely related to above Rule out pancreatitis Severe dehydration MELY due to VMN due to above Reactive leukocytosis , no sepsis Metabolic alkalosis likely due to severe dehydration Uncontrolled diabetes mellitus type 2, HGB A1c 7.5. Insulin-dependent. On Ozempic. Hypercalcemia due to dehydration History of depression, no suicidal ideation Polysubstance abuse, positive for meth and cannabinoid Plan/recommendation -CT abdomen and pelvis:1. No acute abdominal or pelvic finding. 2. Nondilated stomach and small bowel fluid-filled suggestive of possible gastroenteritis versus early adynamic ileus. 3. Severe osteoarthritic disease of the lumbar spine. -repeat abdominal x-ray, continue metronidazole IV antibiotic. Given intractable nausea vomiting, GI consultation will be appreciated for possible upper GI endoscopy. -continue IV hydration with normal saline 50 mL/hour, kidney function, electrolytes including calcium improving, hypokalemia, replenished with IV potassium -uncontrolled hypertension: Lisinopril 20 mg p.o. daily. Nifedipine XL 60 mg p.o. daily. Labetalol 10 mg IV p.r.n. q.6 -uncontrolled diabetes mellitus, HGB A1c 7.5: Insulin-dependent dependent. Continue insulin sliding scale. Atorvastatin 40 mg p.o. daily. -antiemetic: Ondansetron 4 mg IV Q four p.r.n. for nausea and vomiting -counseled on drug cessation including meth and cannabinoids -PUD prophylaxis with enoxaparin -DVT prophylaxis with Protonix Patient continued to have intractable nausea and vomiting, continue with IV fluid, symptomatic dose vitamin admitted with ondansetron as needed, given possible gastroenteritis was a diverticular use, repeat abdominal x-ray. GI consultation for intractable nausea and vomiting requiring possible upper GI endoscopy. Increase the dose of nifedipine to 60 mg given uncontrolled blood pressure, continued lisinopril 20 mg p.o. daily. Continue with clear liquid diet. Goals of care discussed greater than 24 minutes, full code status. Plan discussed with: Patient, Other (RN) My Orders My Orders Orders - TANIA HESTER Procedure Category Date Status Time Metronidazole PHA 01/24/25 In Process 500mg/100ml (Flagyl 14:00 Kub Abdomen Single XY 01/24/25 Logged View 08:50 Nifedipine Er PHA 01/25/25 In Process (Procardia Xl 10:00 Dietary Evaluation Review Comments: CCHO-60 Cardiac Diet, advance to texture as tolerated when medically feasible. Expected Outcomes/Goals: Avoid drugs, improved nutrient utilization Date of Service: January 24, 2025 Billing Provider: HARINI THOMAS MD Common Visit Codes: [id number] INP/OBS CARE(HIGH) TANIA HESTER January 24, 2025 10:26 HARINI THOMAS MD January 25, 2025 08:17
--- NOTE | 2025-01-24 11:48 | DVH ---
XY KUB ABDOMEN SINGLE VIEW HISTORY: nausea and vomiting TECHNICAL DATA: 1 view of the abdomen. COMPARISON: None FINDINGS: Patchy gas is identified within nondistended small bowel. There are no dilated small bowel loops. The re is no abdominal mass effect. The renal and liver shadows are not enlarged. IMPRESSION: No acute intra-abdominal process.
[2025-01-24] MEDS: metroNIDAZOLE 500MG/100ML 100 ML IV ONE (12:23)
[2025-01-24] MEDS: NIFEdipine ER 30 MG TAB PO ONE (12:38)
[2025-01-24] MEDS: metroNIDAZOLE 500MG/100ML 100 ML IV SCH (16:10)
[2025-01-24] MEDS: ATORVASTATIN 20 MG TAB PO SCH (21:42)
[2025-01-25] VITALS (8 sets, daily range): BP systolic 145–164; BP diastolic 89–111; PULSE 75–105; RESP 2–17; TEMP 97.1–98.8; O2SAT 96–100
[2025-01-25] MEDS: METOCLOPRAMIDE HCL 5MG/ml INJ 2ml VIAL IV PRN (04:34)
[2025-01-25 08:16] LABS: Basophils # (auto) 0.1 10 ^3/uL (0-0.2); Basophils % (auto) 0.6 % (0.0-2.0); Eosinophils # (auto) 0 10 ^3/uL (0-0.8); Eosinophils % (auto) 0.2 % (0.0-7.0); Hematocrit 44.5 % (36.0-46.0); Hemoglobin 15.4 g/dL (12.2-16.2); Lymphocytes # (auto) 3.1 10 ^3/uL (0.4-5.4); Lymphocytes % (auto) 29.7 % (10.0-50.0); Mean Corpuscular Hemoglobin 29.3 pg (28.0-32.0); Mean Corpuscular Hgb Conc. 34.7 g/dL (32.0-36.0); Mean Corpuscular Volume 84.5 fL (80.0-100.0); Monocytes # (auto) 0.7 10 ^3/uL (0-1.3); Monocytes % (auto) 6.9 % (0.0-12.0); Neutrophils # (auto) 6.5 10 ^3/uL (1.6-8.6); Neutrophils % (auto) 62.6 % (37.0-80.0); Nucleated Red Blood Cells % 0.1 %; Platelet Count (auto) 274 10^3/uL (140-450); Red Blood Cells 5.26 10^6/uL (4.0-5.20); Red Cell Distribution Width 13.3 % (11.8-14.3); White Blood Cell 10.4 10^3/uL (4.4-10.8)
[2025-01-25 08:26] LABS: Chloride 100 mmol/L (98-107); Sodium 137 mmol/L (136-145)
[2025-01-25 08:27] LABS: Anion Gap 12 (5-15); Carbon Dioxide 25 mmol/L (20-31)
[2025-01-25 08:32] LABS: BUN/Creatinine Ratio 12.6 (10.0-20.0); Blood Urea Nitrogen 11 mg/dL (9-23)
[2025-01-25 08:36] LABS: Glucose 174 mg/dL (74-106); Potassium 3.1 mmol/L (3.5-5.1)
[2025-01-25] MEDS: NIFEdipine ER 30 MG TAB PO SCH (08:38)
[2025-01-25 08:56] LABS: Magnesium 1.8 mg/dL (1.6-2.6)
--- NOTE | 2025-01-25 13:27 | DVHPN2 ---
Subjective The patient is seen and examined at bedside. Still nausea and vomiting. Reviewed: Care Plan, H&P, Labs, Medications, Previous Orders, Radiology Changes from previous H/P or p: No Changes Gastrointestinal: Nausea, Vomiting, Abdominal Pain Objective Vitals Vital Signs Date Time Temp Pulse Resp B/P (MAP) Pulse Ox O2 Delivery O2 Flow Rate FiO2 01/25/25 12:33 82 167/105 01/25/25 06:47 16 01/25/25 05:00 98.4 98 98.4 01/24/25 20:00 Room Air* 0 21 Intake/Output Intake and Output 01/25/25 06:59 Intake Total 2625 ml Balance 2625 ml Intake Oral 1225 ml IV Total 1400 ml # Voids 10 General Appearance: Alert, mild distress HEENT: Atraumatic, PERRLA, EOMI, Mucous membr. moist/pink Neck: Supple Lungs: Clear to auscultation, Normal air movement Cardiovascular: Regular rate, Normal S1, Normal S2, No murmurs, Gallops, Rubs Abdomen: Normal bowel sounds, Soft, No tenderness Neuro: Cranial nerves 3-12 NL Psych/Mental Status: Mental status NL Medications Current Medications Medications Dose Ordered Sig/Kd Route Start Time Stop Time Status Last Admin Dose Admin Acetaminophen/ Hydrocodone Bitart 1 tab Q4HP PRN PO 01/20/25 16:00 01/25/25 12:33 1 TAB Ondansetron HCl 4 mg Q4HP PRN IV 01/20/25 16:00 Hold 01/24/25 06:20 4 MG Enoxaparin Sodium 40 mg DAILY SC 01/21/25 10:00 01/25/25 08:39 40 MG Acetaminophen 650 mg Q6HP PRN PO 01/20/25 16:00 Morphine Sulfate 2 mg Q4HPRN PRN IV 01/20/25 16:00 01/20/25 23:07 2 MG Diagnostic Test (Pha) 1 strip ACHS 01/20/25 17:00 01/25/25 12:10 1 STRIP Insulin Human Regular ACHS SC 01/20/25 17:00 01/25/25 12:09 3 UNITS Dextrose 50 ml UD PRN IV 01/20/25 16:00 Lisinopril 20 mg DAILY PO 01/21/25 10:00 01/25/25 08:38 20 MG Sertraline HCl 50 mg DAILY PO 01/21/25 10:00 01/25/25 08:38 50 MG Pantoprazole Sodium 40 mg DAILY IV 01/21/25 10:00 01/25/25 08:37 40 MG Labetalol HCl 10 mg Q4HPRN PRN IV 01/21/25 09:00 01/25/25 12:33 10 MG Sodium Chloride 1,000 ml @ 50 mls/hr Q20H IV 01/22/25 15:45 01/24/25 16:10 50 MLS/HR Nifedipine 60 mg DAILY PO 01/25/25 10:00 01/25/25 08:38 60 MG Metronidazole 100 ml @ 100 mls/hr Q8HR IV 01/24/25 14:00 01/25/25 05:39 100 MLS/HR Metoclopramide HCl 5 mg Q6HPRN PRN IV 01/24/25 10:30 01/25/25 12:10 5 MG Atorvastatin Calcium 40 mg HS PO 01/24/25 22:00 01/24/25 21:42 40 MG Laboratory Results Laboratory Tests 01/25/25 08:05 Chemistry Test 01/25/25 08:05 Calcium Level 10.0 mg/dL (8.7-10.4) Magnesium Level 1.8 mg/dL (1.6-2.6) Urinalysis Test 01/20/25 14:01 Urine Color Yellow (Yellow) Urine Clarity Turbid (Clear) H Urine pH 5.5 (5.0-9.0) Urine Specific Mobile 1.024 (1.001-1.035) Urine Protein Trace (Negative) H Urine Ketones Negative (Negative) Urine Blood Negative /uL (Negative) Urine Nitrite Negative (Negative) Urine Bilirubin Negative (Negative) Urine Urobilinogen Normal mg/dL (Negative) Urine Leukocyte Esterase Negative /uL (Negative) Urine RBC 1 /hpf (0 - 4) Urine Microscopic WBC 4 /HPF (0-5) Urine Squamous Epithelial Cells Mod /hpf (<5) Urine Bacteria Few /hpf (None Seen) H Urine Hyaline Casts Few /lpf (0 - 2) Urine Mucus Few (None Seen) Urine Glucose 4+ mg/dL (Normal) H Urine Test Negative (Negative) Labs and/or images reviewed: Labs reviewed by me Assessment/Plan Assessment/Plan Intractable nausea and vomiting likely due to medication side effects/Ozempic, cannabinoid induced Intractable epigastric pain likely related to above Rule out pancreatitis Severe dehydration MELY due to VMN due to above Reactive leukocytosis , no sepsis Metabolic alkalosis likely due to severe dehydration Uncontrolled diabetes mellitus type 2, HGB A1c 7.5. Insulin-dependent. On Ozempic. Hypercalcemia due to dehydration History of depression, no suicidal ideation Polysubstance abuse, positive for meth and cannabinoid Plan: -CT abdomen and pelvis:1. No acute abdominal or pelvic finding. 2. Nondilated stomach and small bowel fluid-filled suggestive of possible gastroenteritis versus early adynamic ileus. 3. Severe osteoarthritic disease of the lumbar spine. -repeat abdominal x-ray, continue metronidazole IV antibiotic. Given intractable nausea vomiting, GI consultation will be appreciated for possible upper GI endoscopy. -continue IV hydration with normal saline 50 mL/hour, kidney function, electrolytes including calcium improving, hypokalemia, replenished with IV potassium -uncontrolled hypertension: Lisinopril 20 mg p.o. daily. Nifedipine XL 60 mg p.o. daily. Labetalol 10 mg IV p.r.n. q.6 -uncontrolled diabetes mellitus, HGB A1c 7.5: Insulin-dependent dependent. Continue insulin sliding scale. Atorvastatin 40 mg p.o. daily. -antiemetic: Ondansetron 4 mg IV Q four p.r.n. for nausea and vomiting -counseled on drug cessation including meth and cannabinoids -PUD prophylaxis with enoxaparin -DVT prophylaxis with Protonix Patient continued to have intractable nausea and vomiting, continue with IV fluid, symptomatic dose vitamin admitted with ondansetron as needed, given possible gastroenteritis was a diverticular use, repeat abdominal x-ray. GI consultation for intractable nausea and vomiting requiring possible upper GI endoscopy. Increase the dose of nifedipine to 60 mg given uncontrolled blood pressure, continued lisinopril 20 mg p.o. daily. Continue with clear liquid diet. Advised to stopped smoking marijuana more than 15 minutes This medical document was created using an electronic medical record system with [employer] direct computerized dictation system. Although this document has been carefully reviewed, there may still be some phonetic and typographical errors. These areas are purely typographical due to imperfections of the software programs, and do not reflect any compromise in the patient's medical care. Plan discussed with: Patient Date of Service: January 25, 2025 Billing Provider: HARINI THOMAS MD Common Visit Codes: [id number] INP/OBS CARE(HIGH) HARINI THOMAS MD January 25, 2025 13:27
[2025-01-25] MEDS: POTASSIUM EFFERVESENT TAB 25 MEQ PO ONE (22:09)
--- NOTE | 2025-01-25 22:41 | DVHINCON2 ---
Date of service: January 25, [address] Ross Reason for Consultation N/V History of Present Illness 50-year-old female presents to the ED with a c/o nausea, vomiting, and abdominal pain. Patient states that her pain is localized to her epigastric region, nonradiating, describes as aching, and rates her pain a 9/10. Patient mentions that she is on Ozempic and believes that is the cause of her symptoms. Patient mentions that she is having intermittent episodes of vomiting. Patient is requesting IV fluids. Patient endorses marijuana usage. GI was consulted because of persistent symptoms to consider endoscopy. Patient was seen at bedside this morning and was resting comfortably stating she is feeling better. There was no recent endoscopy test and she denied any GI bleeding. Patient is also using amphetamines and cannabinoids which might be making her symptoms worse Past Medical History Psych: Depression;Anxiety Endocrine: Diabetes Past Surgical History Past Surgical History: Family History: Patient reports no known family medical history. Social History Marijuana use Allergies: Coded Allergies: NO KNOWN ALLERGIES (Unverified , 04/21/12) Home Meds Reported Medications Aripiprazole (Abilify Mycite Starter Ki) 5 Mg Tab 01/20/25 Sertraline Hcl (Sertraline Hcl) 100 Mg Tab, 1 TAB PO DAILY 01/20/25 Pantoprazole Sodium Sesquihydr (Pantoprazole Sodium) 40 Mg Tab, 1 TAB PO DAILY 01/20/25 Atorvastatin Calcium (ATORVASTATIN CALCIUM) 20 Mg Tab, 1 TAB PO DAILY 01/20/25 Lisinopril (Lisinopril) 20 Mg Tab, 1 TAB PO DAILY 01/20/25 Current Medications Current Medications Medications (Trade) Dose Ordered Sig/Kd Route PRN Reason Start Time Stop Time Status Last Admin Nifedipine (Procardia Xl (Time-Release)) 60 mg DAILY PO 01/25/25 10:00 01/25/25 08:38 Vital Signs Vital Signs Date Time Temp Pulse Resp B/P (MAP) Pulse Ox O2 Delivery O2 Flow Rate FiO2 01/25/25 17:00 98.8 75 17 145/89 (107) 100 98.8 01/25/25 07:30 Room Air* 0 21 Physical Exam General Appearance: Cooperative. Well developed. Well nourished. NAD Head Exam: Normal inspection Pulmonary/Respiratory: Chest non-tender. Clear bilateral breath sounds Cardiovascular/Chest: Regular rate and rhythm. No murmurs. No JVD. Abdominal Exam: Normal bowel sounds. Soft. Nontender. No hepatospenomegaly. No masses Lower extremities: Negative lower extremity edema Neuro/Mental Status: A&O x4. Coherent Labs/Diagnostic Data Labs Test 01/25/25 17:26 01/25/25 08:05 01/21/25 04:55 01/20/25 14:15 Range/Units POC Glucose 155 H 70-106 mg/dl White Blood Count 10.4 4.4-10.8 10^3/uL Red Blood Count 5.26 H 4.0-5.20 10^6/uL Hemoglobin 15.4 12.2-16.2 g/dL Hematocrit 44.5 36.0-46.0 % Mean Corpuscular Volume 84.5 80.0-100.0 fL Mean Corpuscular Hemoglobin 29.3 28.0-32.0 pg Mean Corpuscular Hemoglobin Concent 34.7 32.0-36.0 g/dL Red Cell Distribution Width 13.3 11.8-14.3 % Platelet Count 274 140-450 10^3/uL Mean Platelet Volume 8.4 6.9-10.8 fL Neutrophils (%) (Auto) 62.6 37.0-80.0 % Lymphocytes (%) (Auto) 29.7 10.0-50.0 % Monocytes (%) (Auto) 6.9 0.0-12.0 % Eosinophils (%) (Auto) 0.2 0.0-7.0 % Basophils (%) (Auto) 0.6 0.0-2.0 % Neutrophils # (Auto) 6.5 1.6-8.6 10 ^3/uL Lymphocytes # (Auto) 3.1 0.4-5.4 10 ^3/uL Monocytes # (Auto) 0.7 0-1.3 10 ^3/uL Eosinophils # (Auto) 0 0-0.8 10 ^3/uL Basophils # (Auto) 0.1 0-0.2 10 ^3/uL Nucleated Red Blood Cells 0.1 % Sodium Level 137 136-145 mmol/L Potassium Level 3.1 L 3.5-5.1 mmol/L Chloride Level 100 98-107 mmol/L Carbon Dioxide Level 25 20-31 mmol/L Anion Gap 12 5-15 Blood Urea Nitrogen 11 9-23 mg/dL Creatinine 0.87 0.550-1.02 mg/dL Glomerular Filtration Rate Calc 81 >90 mL/min BUN/Creatinine Ratio 12.6 10.0-20.0 Serum Glucose 174 H 74-106 mg/dL Calcium Level 10.0 8.7-10.4 mg/dL Magnesium Level 1.8 1.6-2.6 mg/dL Total Bilirubin 0.6 0.2-1.0 mg/dL Aspartate Amino Transferase (AST) 13 13-40 U/L Alanine Aminotransferase (ALT) 14 7-40 U/L Alkaline Phosphatase 99 46-116 U/L B-Type Natriuretic Peptide 10.85 0-100 pg/mL Total Protein 7.0 5.7-8.2 g/dL Albumin 4.6 3.2-4.8 g/dL Triglycerides Level 224 H < 150 mg/dL Cholesterol Level 170 < 200 mg/dL LDL Cholesterol 98 < 100 mg/dL HDL Cholesterol 37 L 40-59 mg/dL Lipase 48 12-53 U/L Thyroid Stimulating Hormone (TSH) 1.83 0.55-4.78 uIU/mL Parathyroid Hormone (Intact) 49.1 18.4-80.1 pg/mL Hemoglobin A1c 7.5 H <5.7 % A1C Test 01/20/25 14:01 Range/Units Urine Color Yellow Yellow Urine Clarity Turbid H Clear Urine pH 5.5 5.0-9.0 Urine Specific [place] 1.024 1.001-1.035 Urine Protein Trace H Negative Urine Ketones Negative Negative Urine Blood Negative Negative /uL Urine Nitrite Negative Negative Urine Bilirubin Negative Negative Urine Urobilinogen Normal Negative mg/dL Urine Leukocyte Esterase Negative Negative /uL Urine RBC 1 0 - 4 /hpf Urine Microscopic WBC 4 0-5 /HPF Urine Squamous Epithelial Cells Mod <5 /hpf Urine Bacteria Few H None Seen /hpf Urine Hyaline Casts Few 0 - 2 /lpf Urine Mucus Few None Seen Urine Glucose 4+ H Normal mg/dL Urine Test Negative Negative Urine Opiates Screen Neg NEGATIVE Urine Fentanyl Screen Neg NEGATIVE Urine Barbiturates Screen Neg NEGATIVE Urine Phencyclidine Screen Neg NEGATIVE Urine Amphetamines Screen Pos NEGATIVE Urine Benzodiazepines Screen Neg NEGATIVE Urine Cocaine Screen Neg NEGATIVE Urine Cannabinoids Screen Pos NEGATIVE CT SCAN ABD PELVIS IMPRESSION: 1. No acute abdominal or pelvic finding. 2. Nondilated stomach and small bowel fluid-filled suggestive of possible gastroenteritis versus early adynamic ileus. 3. 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 Chest Abd Xray IMPRESSION: No acute intra-abdominal process. Problems(with codes): (1) Hypokalemia (2) Intractable nausea (3) Uncontrolled diabetes mellitus Plan/Recommendation Plan Discontinue IV Flagyl Zofran as needed for nausea vomiting Increase Protonix to 40 mg q.12 hours Reglan 5 mg IV q.8 hours discontinue amphetamines and cannabinoids If symptoms persist I will be standing by for EGD Plan discussed with: Patient LAUREN GEORGE MD January 25, 2025 22:41
[2025-01-26 05:00] VITALS: BP 167/102; PULSE 86; RESP 17; TEMP 98; O2SAT 98
[2025-01-26 06:03] LABS: Chloride 100 mmol/L (98-107); Sodium 137 mmol/L (136-145)
[2025-01-26 06:04] LABS: Anion Gap 10 (5-15); Carbon Dioxide 27 mmol/L (20-31)
[2025-01-26 06:05] LABS: Calcium 9.7 mg/dL (8.7-10.4)
[2025-01-26 06:10] LABS: BUN/Creatinine Ratio 13.5 (10.0-20.0); Blood Urea Nitrogen 10 mg/dL (9-23)
[2025-01-26 06:17] LABS: Glucose 160 mg/dL (74-106)
[2025-01-26 08:10] VITALS: PULSE 78; RESP 19; O2SAT 98
[2025-01-26] MEDS: MAGNESIUM OXIDE 400 MG TAB PO ONE (09:36)
[2025-01-26] MEDS: LISINOPRIL 20 MG TAB PO SCH (09:38)
[2025-01-26] MEDS: PANTOPRAZOLE 40 MG/10 ML VIAL INJ IV SCH (09:39)
[2025-01-26] MEDS: POTASSIUM EFFERVESENT TAB 25 MEQ PO ONE (09:39)
[2025-01-26 13:00] VITALS: BP_SYST 173; BP_SYST 178; BP_SYST 188; BP_DIAS 112; BP_DIAS 115; BP_DIAS 118; PULSE 77; RESP 16; TEMP 97.2; O2SAT 99
[2025-01-26] MEDS: hydrALAZINE HCL 20 MG/ML VL IV ONE (13:09)
[2025-01-26] MEDS ORDERED: PROCHLORPERAZINE EDISYLATE 5 MG/ML 2ML VIAL IV PRN (13:45)
[2025-01-26] MEDS: PROCHLORPERAZINE EDISYLATE 5 MG/ML 2ML VIAL IM ONE (14:44)
[2025-01-26] MEDS: POTASSIUM CHL 20MEQ/100ML 100 ML IV SCH (14:46)
--- NOTE | 2025-01-26 15:41 | DVHPNRES ---
Progress Note Date Seen: January 26, 2025 Resident Creating Document: TANIA HESTER RESIDENT Medical Necessity Reason Pt with a Central, PICC or Fol: No Subjective Review of Systems Patient seen and examined at bedside Continued to have nausea/vomiting. Continued to have mild abdominal pain No any other new complaints. Objective vital signs Vital Sign Date Time Temp Pulse Resp B/P (MAP) Pulse Ox O2 Delivery O2 Flow Rate FiO2 01/26/25 13:09 190/127 01/26/25 13:00 97.2 77 16 99 97.2 01/26/25 08:10 Room Air* 0 21 Total Intake and Output 01/25/25 01/25/25 01/26/25 15:00 23:00 07:00 Intake Total 420 ml 1600 ml 1580 ml Balance 420 ml 1600 ml 1580 ml medications Current Medications Medications Dose Ordered Sig/Kd Route Start Time Stop Time Status Last Admin Dose Admin Acetaminophen/ Hydrocodone Bitart 1 tab Q4HP PRN PO 01/20/25 16:00 Hold 01/26/25 10:05 1 TAB Ondansetron HCl 4 mg Q4HP PRN IV 01/20/25 16:00 Hold 01/24/25 06:20 4 MG Enoxaparin Sodium 40 mg DAILY SC 01/21/25 10:00 01/26/25 09:39 40 MG Acetaminophen 650 mg Q6HP PRN PO 01/20/25 16:00 Diagnostic Test (Pha) 1 strip ACHS 01/20/25 17:00 01/26/25 11:30 1 STRIP Insulin Human Regular ACHS SC 01/20/25 17:00 01/26/25 12:13 3 UNITS Dextrose 50 ml UD PRN IV 01/20/25 16:00 Sertraline HCl 50 mg DAILY PO 01/21/25 10:00 01/26/25 09:36 50 MG Labetalol HCl 10 mg Q4HPRN PRN IV 01/21/25 09:00 01/26/25 09:50 10 MG Sodium Chloride 1,000 ml @ 50 mls/hr Q20H IV 01/22/25 15:45 01/25/25 22:11 50 MLS/HR Nifedipine 60 mg DAILY PO 01/25/25 10:00 01/26/25 09:38 60 MG Atorvastatin Calcium 40 mg HS PO 01/24/25 22:00 01/25/25 22:09 40 MG Pantoprazole Sodium 40 mg BID IV 01/26/25 10:00 01/26/25 09:39 40 MG Lisinopril 40 mg DAILY PO 01/26/25 10:00 01/26/25 09:38 40 MG Hydralazine HCl 10 mg Q6HP PRN IV 01/26/25 12:30 Ketorolac Tromethamine 15 mg Q6HPRN PRN IV 01/26/25 12:30 01/31/25 12:29 Metoclopramide HCl 5 mg Q6HPRN IV 01/26/25 18:00 UNV Potassium Chloride 100 ml @ 50 mls/hr Q2H IV 01/26/25 13:45 01/26/25 17:44 01/26/25 14:46 50 MLS/HR Prochlorperazine Edisylate 5 mg Q4HPRN PRN IV 01/26/25 13:45 Examination General Appearance: Cooperative. Well developed. Well nourished. NAD Head Exam: Normal inspection Neck Exam: Normal inspection. Non-tender. Normal alignment Pulmonary/Respiratory: Chest non-tender. Clear bilateral breath sounds Cardiovascular/Chest: Regular rate and rhythm. No murmurs. No JVD. Peripheral Pulses: 2+ Radial (R). 2+ Radial (L). 2+ Pedal (R). 2+ Pedal (L) Abdominal Exam: Normal bowel sounds. Soft. Nontender. No hepatospenomegaly. No masses Ankle Exam: Negative ankle edema Lower extremities: Negative lower extremity edema Neuro/Mental Status: A&O x4. Coherent Thoughts/Psych: Normal thought pattern. Appropriate mood and affect. Good judgement and insight Appearance: In no acute distress Skin Exam: Normal inspection. Normal color. Warm. Dry laboratory and microbiology Laboratory Tests 01/26/25 05:11 01/25/25 08:05 Test 01/26/25 05:11 Range/Units Serum Glucose 160 H 74-106 mg/dL Problem List/Assessment/Plan Problem List/Assessment/Plan Intractable nausea and vomiting likely due to medication side effects/Ozempic, cannabinoid induced Intractable epigastric pain likely related to above Rule out pancreatitis Severe dehydration MELY due to VMN due to above Reactive leukocytosis , no sepsis Metabolic alkalosis likely due to severe dehydration Uncontrolled diabetes mellitus type 2, HGB A1c 7.5. Insulin-dependent. On Ozempic. Hypercalcemia due to dehydration History of depression, no suicidal ideation Polysubstance abuse, positive for meth and cannabinoid Plan/recommendation -CT abdomen and pelvis:1. No acute abdominal or pelvic finding. 2. Nondilated stomach and small bowel fluid-filled suggestive of possible gastroenteritis versus early adynamic ileus. 3. Severe osteoarthritic disease of the lumbar spine. -repeat abdominal x-ray, continue metronidazole IV antibiotic. Given intractable nausea vomiting, GI consultation will be appreciated for possible upper GI endoscopy. -continue IV hydration with normal saline 50 mL/hour, kidney function, electrolytes including calcium improving, hypokalemia, replenished with IV potassium -uncontrolled hypertension: Lisinopril 20 mg p.o. daily. Nifedipine XL 60 mg p.o. daily. Labetalol 10 mg IV p.r.n. q.6 -uncontrolled diabetes mellitus, HGB A1c 7.5: Insulin-dependent dependent. Continue insulin sliding scale. Atorvastatin 40 mg p.o. daily. -antiemetic: Ondansetron 4 mg IV Q four p.r.n. for nausea and vomiting,metoclopramide and prochlorperazine. -counseled on drug cessation including meth and cannabinoids -PUD prophylaxis with enoxaparin -DVT prophylaxis with Protonix Goals of care discussed greater than 24 minutes, full code status. Plan discussed with Plan discussed with: Patient My Orders My Orders Orders - TANIA HESTER RESIDENT Procedure Category Date Status Time Lisinopril Tablet PHA 01/26/25 In Process (Zestril Tablet) 10:00 Hydralazine Injection PHA 01/26/25 In Process (Apresoline Inject 12:30 Ketorolac Injection PHA 01/26/25 In Process (Toradol Injection) 12:30 Metoclopramide PHA 01/26/25 Logged Injection (Reglan 18:00 Potassium Chl PHA 01/26/25 In Process 20meq/100ml 13:45 Prochlorperazine Inj PHA 01/26/25 In Process (Compazine Inj) 13:45 Dietary Evaluation Review Comments: CCHO-60 Cardiac Diet, advance to texture as tolerated when medically feasible. Expected Outcomes/Goals: Avoid drugs, improved nutrient utilization Date of Service: January 26, 2025 Billing Provider: HARINI THOMAS MD Common Visit Codes: [id number] INP/OBS CARE(HIGH) KACIEJENYTANIA RESIDENT January 26, 2025 15:41 HARINI THOMAS MD January 26, 2025 18:02
[2025-01-26 17:00] VITALS: BP 127/79; PULSE 98; RESP 17; TEMP 98.5; O2SAT 98
[2025-01-26] MEDS: METOCLOPRAMIDE HCL 5MG/ml INJ 2ml VIAL IV SCH (17:46)
[2025-01-26 20:00] VITALS: PULSE 91
--- NOTE | 2025-01-26 20:42 | DVHPN2 ---
Progress Note - Dictate Date Seen: January 26, 2025 Medical Necessity Reason Pt with a Central, PICC or Fol: No Subjective Patient is sleeping comfortably Patient seen and examined at bedside Continued to have nausea/vomiting. Continued to have mild abdominal pain No any other new complaints. vital signs Vital Sign Date Time Temp Pulse Resp B/P (MAP) Pulse Ox O2 Delivery O2 Flow Rate FiO2 01/26/25 20:00 Room Air* 0 21 01/26/25 17:00 98.5 98 17 127/79 (95) 98 98.5 Total Intake and Output 01/25/25 01/25/25 01/26/25 15:00 23:00 07:00 Intake Total 420 ml 1600 ml 1580 ml Balance 420 ml 1600 ml 1580 ml medications Current Medications Medications Dose Ordered Sig/Kd Route Start Time Stop Time Status Last Admin Dose Admin Acetaminophen/ Hydrocodone Bitart 1 tab Q4HP PRN PO 01/20/25 16:00 Hold 01/26/25 10:05 1 TAB Ondansetron HCl 4 mg Q4HP PRN IV 01/20/25 16:00 Hold 01/24/25 06:20 4 MG Enoxaparin Sodium 40 mg DAILY SC 01/21/25 10:00 01/26/25 09:39 40 MG Acetaminophen 650 mg Q6HP PRN PO 01/20/25 16:00 Diagnostic Test (Pha) 1 strip ACHS 01/20/25 17:00 01/26/25 17:00 1 STRIP Insulin Human Regular ACHS SC 01/20/25 17:00 01/26/25 17:46 2 UNITS Dextrose 50 ml UD PRN IV 01/20/25 16:00 Sertraline HCl 50 mg DAILY PO 01/21/25 10:00 01/26/25 09:36 50 MG Labetalol HCl 10 mg Q4HPRN PRN IV 01/21/25 09:00 01/26/25 09:50 10 MG Sodium Chloride 1,000 ml @ 50 mls/hr Q20H IV 01/22/25 15:45 01/26/25 20:15 50 MLS/HR Nifedipine 60 mg DAILY PO 01/25/25 10:00 01/26/25 09:38 60 MG Atorvastatin Calcium 40 mg HS PO 01/24/25 22:00 01/25/25 22:09 40 MG Pantoprazole Sodium 40 mg BID IV 01/26/25 10:00 01/26/25 09:39 40 MG Lisinopril 40 mg DAILY PO 01/26/25 10:00 01/26/25 09:38 40 MG Hydralazine HCl 10 mg Q6HP PRN IV 01/26/25 12:30 Ketorolac Tromethamine 15 mg Q6HPRN PRN IV 01/26/25 12:30 01/31/25 12:29 Metoclopramide HCl 5 mg Q6H IV 01/26/25 18:00 01/26/25 17:46 5 MG Prochlorperazine Edisylate 5 mg Q4HPRN PRN IV 01/26/25 13:45 objective General Appearance: Cooperative. Well developed. Well nourished. NAD Head Exam: Normal inspection Pulmonary/Respiratory: Chest non-tender. Clear bilateral breath sounds Cardiovascular/Chest: Regular rate and rhythm. No murmurs. No JVD. Abdominal Exam: Normal bowel sounds. Soft. Nontender. No hepatospenomegaly. No masses Lower extremities: Negative lower extremity edema Neuro/Mental Status: A&O x4. Coherent laboratory and microbiology Laboratory Tests 01/26/25 05:11 01/25/25 08:05 Test 01/26/25 05:11 Range/Units Serum Glucose 160 H 74-106 mg/dL CT SCAN ABD PELVIS IMPRESSION: 1. No acute abdominal or pelvic finding. 2. Nondilated stomach and small bowel fluid-filled suggestive of possible gastroenteritis versus early adynamic ileus. 3. 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 Problems(with codes): (1) Leukocytosis (2) Marijuana use (3) Cyclical vomiting (4) Hypokalemia (5) Intractable nausea Prognosis Plan IV Flagyl was discontinued Advance diet as tolerated Continue IV PPI Patient was counseled about discontinuing marijuana NPO after clear liquid breakfast tomorrow, I will schedule her tentatively for an endoscopy on 01/27/2025 Dietary Evaluation Review Comments: CCHO-60 Cardiac Diet, advance to texture as tolerated when medically feasible. Expected Outcomes/Goals: Avoid drugs, improved nutrient utilization Plan discussed with: Patient LAUREN GEORGE MD January 26, 2025 20:42
[2025-01-26] MEDS: SUCRALFATE 1 GM/10 ML ORAL SUSP PO SCH (20:53)
[2025-01-26 21:00] VITALS: BP 166/98; PULSE 92; RESP 16; TEMP 97.9; O2SAT 97
[2025-01-27] VITALS (10 sets, daily range): BP systolic 0–166; BP diastolic 79–100; PULSE 76–105; RESP 12–18; TEMP 97.1–99; O2SAT 97–100
[2025-01-27 07:01] LABS: Basophils # (auto) 0 10 ^3/uL (0-0.2); Basophils % (auto) 0.3 % (0.0-2.0); Eosinophils # (auto) 0.1 10 ^3/uL (0-0.8); Eosinophils % (auto) 0.7 % (0.0-7.0); Hematocrit 40.2 % (36.0-46.0); Hemoglobin 13.9 g/dL (12.2-16.2); Lymphocytes # (auto) 2.3 10 ^3/uL (0.4-5.4); Lymphocytes % (auto) 29.5 % (10.0-50.0); Mean Corpuscular Hemoglobin 29.1 pg (28.0-32.0); Mean Corpuscular Hgb Conc. 34.5 g/dL (32.0-36.0); Mean Corpuscular Volume 84.3 fL (80.0-100.0); Monocytes # (auto) 0.8 10 ^3/uL (0-1.3); Monocytes % (auto) 10.6 % (0.0-12.0); Neutrophils # (auto) 4.5 10 ^3/uL (1.6-8.6); Neutrophils % (auto) 58.9 % (37.0-80.0); Nucleated Red Blood Cells % 0.3 %; Platelet Count (auto) 246 10^3/uL (140-450); Red Blood Cells 4.77 10^6/uL (4.0-5.20); Red Cell Distribution Width 13.8 % (11.8-14.3); White Blood Cell 7.6 10^3/uL (4.4-10.8)
[2025-01-27 07:07] LABS: Anion Gap 12 (5-15); Calcium 9.3 mg/dL (8.7-10.4); Carbon Dioxide 24 mmol/L (20-31); Chloride 101 mmol/L (98-107); Potassium 3.3 mmol/L (3.5-5.1); Sodium 137 mmol/L (136-145)
[2025-01-27 07:12] LABS: Glucose 143 mg/dL (74-106)
[2025-01-27 07:13] LABS: BUN/Creatinine Ratio 14.5 (10.0-20.0); Blood Urea Nitrogen 9 mg/dL (9-23)
[2025-01-27] MEDS: KETOROLAC TROMETH 30 MG/ML 1ML VIAL IV PRN (12:26)
[2025-01-27] MEDS: hydrALAZINE HCL 20 MG/ML VL IV PRN (12:26)
[2025-01-27] MEDS ORDERED: SODIUM CHLORIDE LOCK 10 ML ONE (12:54)
--- NOTE | 2025-01-27 14:20 | DVHPNRES ---
Progress Note Date Seen: January 27, 2025 Resident Creating Document: TANIA HESTER RESIDENT Medical Necessity Reason Pt with a Central, PICC or Fol: No Subjective Review of Systems Patient seen and examined at bed side still continue to have nausea and vomiting Keep NPO Plan for EGD today Objective vital signs Vital Sign Date Time Temp Pulse Resp B/P (MAP) Pulse Ox O2 Delivery O2 Flow Rate FiO2 01/27/25 12:26 164/95 01/27/25 08:30 98.4 78 14 99 98.4 01/27/25 08:10 Room Air* 0 21 Total Intake and Output 01/26/25 01/26/25 01/27/25 15:00 23:00 07:00 Intake Total 1100 ml 0 ml Balance 1100 ml 0 ml medications Current Medications Medications Dose Ordered Sig/Kd Route Start Time Stop Time Status Last Admin Dose Admin Acetaminophen/ Hydrocodone Bitart 1 tab Q4HP PRN PO 01/20/25 16:00 Hold 01/26/25 10:05 1 TAB Ondansetron HCl 4 mg Q4HP PRN IV 01/20/25 16:00 Hold 01/24/25 06:20 4 MG Enoxaparin Sodium 40 mg DAILY SC 01/21/25 10:00 01/26/25 09:39 40 MG Acetaminophen 650 mg Q6HP PRN PO 01/20/25 16:00 Diagnostic Test (Pha) 1 strip ACHS 01/20/25 17:00 01/27/25 11:18 1 STRIP Insulin Human Regular ACHS SC 01/20/25 17:00 01/27/25 11:22 2 UNITS Dextrose 50 ml UD PRN IV 01/20/25 16:00 Sertraline HCl 50 mg DAILY PO 01/21/25 10:00 01/27/25 09:18 50 MG Labetalol HCl 10 mg Q4HPRN PRN IV 01/21/25 09:00 01/27/25 04:19 10 MG Sodium Chloride 1,000 ml @ 50 mls/hr Q20H IV 01/22/25 15:45 01/26/25 20:15 50 MLS/HR Nifedipine 60 mg DAILY PO 01/25/25 10:00 01/27/25 09:20 60 MG Atorvastatin Calcium 40 mg HS PO 01/24/25 22:00 01/26/25 20:53 40 MG Pantoprazole Sodium 40 mg BID IV 01/26/25 10:00 01/27/25 09:18 40 MG Lisinopril 40 mg DAILY PO 01/26/25 10:00 01/27/25 09:19 40 MG Hydralazine HCl 10 mg Q6HP PRN IV 01/26/25 12:30 01/27/25 12: 10 MG Ketorolac Tromethamine 15 mg Q6HPRN PRN IV 01/26/25 12:30 01/31/25 12:29 01/27/25 12:26 15 MG Metoclopramide HCl 5 mg Q6H IV 01/26/25 18:00 01/27/25 11:18 5 MG Prochlorperazine Edisylate 5 mg Q4HPRN PRN IV 01/26/25 13:45 Sucralfate 1 gm QID@0600,1130,1700,2200 PO 01/26/25 22:00 01/27/25 11:18 1 GM Examination General Appearance: Cooperative. Well developed. Well nourished. NAD Head Exam: Normal inspection Neck Exam: Normal inspection. Non-tender. Normal alignment Pulmonary/Respiratory: Chest non-tender. Clear bilateral breath sounds Cardiovascular/Chest: Regular rate and rhythm. No murmurs. No JVD. Peripheral Pulses: 2+ Radial (R). 2+ Radial (L). 2+ Pedal (R). 2+ Pedal (L) Abdominal Exam: Normal bowel sounds. Soft. Nontender. No hepatospenomegaly. No masses Ankle Exam: Negative ankle edema Lower extremities: Negative lower extremity edema Neuro/Mental Status: A&O x4. Coherent Thoughts/Psych: Normal thought pattern. Appropriate mood and affect. Good judgement and insight Appearance: In no acute distress Skin Exam: Normal inspection. Normal color. Warm. Dry laboratory and microbiology Laboratory Tests 01/27/25 05:37 Test 01/27/25 05:37 Range/Units Serum Glucose 143 H 74-106 mg/dL Problem List/Assessment/Plan Problem List/Assessment/Plan Intractable nausea and vomiting likely due to medication side effects/Ozempic, cannabinoid induced Intractable epigastric pain likely related to above Rule out pancreatitis Severe dehydration MELY due to VMN due to above Reactive leukocytosis , no sepsis Metabolic alkalosis likely due to severe dehydration Uncontrolled diabetes mellitus type 2, HGB A1c 7.5. Insulin-dependent. On Ozempic. Hypercalcemia due to dehydration History of depression, no suicidal ideation Polysubstance abuse, positive for meth and cannabinoid Plan/recommendation Plan for EGD today. Keep NPO -CT abdomen and pelvis:1. No acute abdominal or pelvic finding. 2. Nondilated stomach and small bowel fluid-filled suggestive of possible gastroenteritis versus early adynamic ileus. 3. Severe osteoarthritic disease of the lumbar spine. -repeat abdominal x-ray, continue metronidazole IV antibiotic. Given intractable nausea vomiting, GI consultation will be appreciated for possible upper GI endoscopy. -continue IV hydration with normal saline 50 mL/hour, kidney function, electrolytes including calcium improving, hypokalemia, replenished with IV potassium -uncontrolled hypertension: Lisinopril 20 mg p.o. daily. Nifedipine XL 60 mg p.o. daily. Labetalol 10 mg IV p.r.n. q.6 -uncontrolled diabetes mellitus, HGB A1c 7.5: Insulin-dependent dependent. Continue insulin sliding scale. Atorvastatin 40 mg p.o. daily. -antiemetic: Ondansetron 4 mg IV Q four p.r.n. for nausea and vomiting,metoclopramide and prochlorperazine. -counseled on drug cessation including meth and cannabinoids -PUD prophylaxis with enoxaparin -DVT prophylaxis with Protonix Goals of care discussed greater than 24 minutes, full code status. Plan discussed with Plan discussed with: Patient, Other Dietary Evaluation Review Comments: CCHO-60 Cardiac Diet, advance to texture as tolerated when medically feasible. Expected Outcomes/Goals: Avoid drugs, improved nutrient utilization Date of Service: January 27, 2025 Billing Provider: HARINI THOMAS MD Common Visit Codes: [id number] INP/OBS CARE(HIGH) TANIA HESTER RESIDENT January 27, 2025 14:20 HARINI THOMAS MD January 27, 2025 17:54
[2025-01-27] MEDS: LIDOCAINE VISCOUS 2% 15ML UD ONE (15:27)
[2025-01-27] MEDS: diphenhdrAMINE HCL 50 MG/1 ML VL ONE (15:27)
[2025-01-27] MEDS: MIDAZOLAM HCL 5 MG/ML-1ML VIAL ONE (15:27)
[2025-01-27] MEDS: fentaNYL CITRATE 100 MCG/2 ML VL ONE (15:27)
--- NOTE | 2025-01-27 15:46 | DVHOP2 ---
Operative Report DATE OF OPERATION: 01/27/25 PROCEDURE: Upper Endoscopy with biopsy. PREOPERATIVE INDICATION: The patient is a 50 -year-old female undergoing endoscopy for nausea vomiting and abdominal pain POSTOPERATIVE DIAGNOSES: 1. 0.5 cm sliding-type hiatal hernia with grade a erosive esophagitis 2. [id number] gastritis otherwise normal examination up to the 2nd and 3rd part of the duodenum PROCEDURE PERFORMED BY: Lauren Judd GI NURSE: Bhavna SCOPE: Olympus videoendoscope. ASA CLASS: 2 PREOPERATIVE MEDICATIONS: Versed 3 mg, Fentanyl 75 mcg, Benadryl 50 mg I administered moderate sedation throughout this _8_ minutes procedure. An independent trained observer pushed medications at my direction, and monitored the patient's level of consciousness and physiological status throughout. PROCEDURE IN DETAIL: After obtaining an informed consent, the patient was placed on left lateral decubitus position. The patient was then sedated with the above medications. A bite block was placed between her teeth. The endoscope was then passed through the oropharynx, into the esophagus, and through the stomach and pylorus up to the second and third part of the duodenum. The endoscope was then withdrawn. The 2nd and 3rd part of the duodenal and the duodenal bulb were normal. Duodenal biopsies were obtained The pre-pyloric area antrum and body of the stomach showed moderate gastritis with hyperemia erythema On retroflexion the fundus and cardia were normal. Gastric biopsies were obtained. The endoscope was then withdrawn into the distal esophagus. GE junction biopsies were obtained Patient had a 0.5- 1 cm sliding-type hiatal hernia with minimal grade a erosive esophagitis. The remaining distal and proximal esophagus and oropharynx were unremarkable The patient tolerated the procedure well without difficulty. COMPLICATIONS : None SPECIMENS: Duodenal biopsies Gastric biopsies GE junction biopsies DISPOSITION: Transfer back to the floor Stable PLAN: 1. Await for biopsy result 2. Will place pt on Protonix 40 mg bid 3. Carafate 1 g p.o. twice a day 4. DC aspirin NSAIDs smoking alcohol 5. Resume soft mechanical diet advance as tolerated 6. Outpatient follow up with me in 4-6 weeks to review results and discuss further management LAUREN JUDD MD January 27, 2025 15:46
[2025-01-27] MEDS: ACETAMINOPHEN 325 MG TAB PO PRN (22:04)
[2025-01-28] VITALS (8 sets, daily range): BP systolic 118–145; BP diastolic 84–95; PULSE 85–115; RESP 16–18; TEMP 97.2–98.9; O2SAT 97–99
--- NOTE | 2025-01-28 11:51 | DVHPNRES ---
Progress Note Date Seen: January 28, 2025 Resident Creating Document: TANIA HESTER RESIDENT Medical Necessity Reason Pt with a Central, PICC or Fol: No Subjective Review of Systems patient seen and examined at bed side continue to have intractable nausea and vomiting s/p EGD yesterday Objective vital signs Vital Sign Date Time Temp Pulse Resp B/P (MAP) Pulse Ox O2 Delivery O2 Flow Rate FiO2 01/28/25 09:06 145/95 01/28/25 09:00 98.9 95 17 98 98.9 01/28/25 08:00 Room Air* 0 21 Total Intake and Output 01/27/25 01/27/25 01/28/25 15:00 23:00 07:00 Intake Total 0 ml 1000 ml Balance 0 ml 1000 ml medications Current Medications Medications Dose Ordered Sig/Kd Route Start Time Stop Time Status Last Admin Dose Admin Acetaminophen/ Hydrocodone Bitart 1 tab Q4HP PRN PO 01/20/25 16:00 Hold 01/26/25 10:05 1 TAB Ondansetron HCl 4 mg Q4HP PRN IV 01/20/25 16:00 01/24/25 06:20 4 MG Enoxaparin Sodium 40 mg DAILY SC 01/21/25 10:00 01/28/25 09:05 40 MG Acetaminophen 650 mg Q6HP PRN PO 01/20/25 16:00 01/27/25 22:04 650 MG Diagnostic Test (Pha) 1 strip ACHS 01/20/25 17:00 01/28/25 06:06 1 STRIP Insulin Human Regular ACHS SC 01/20/25 17:00 01/28/25 06:08 2 UNITS Dextrose 50 ml UD PRN IV 01/20/25 16:00 Sertraline HCl 50 mg DAILY PO 01/21/25 10:00 01/28/25 09:04 50 MG Labetalol HCl 10 mg Q4HPRN PRN IV 01/21/25 09:00 01/27/25 04:19 10 MG Sodium Chloride 1,000 ml @ 50 mls/hr Q20H IV 01/22/25 15:45 01/27/25 17:27 50 MLS/HR Nifedipine 60 mg DAILY PO 01/25/25 10:00 01/28/25 09:05 60 MG Atorvastatin Calcium 40 mg HS PO 01/24/25 22:00 01/27/25 21:56 40 MG Pantoprazole Sodium 40 mg BID IV 01/26/25 10:00 01/28/25 09:04 40 MG Lisinopril 40 mg DAILY PO 01/26/25 10:00 01/28/25 09:06 40 MG Hydralazine HCl 10 mg Q6HP PRN IV 01/26/25 12:30 01/27/25 12:26 10 MG Ketorolac Tromethamine 15 mg Q6HPRN PRN IV 01/26/25 12:30 01/31/25 12:29 01/27/25 12:26 15 MG Metoclopramide HCl 5 mg Q6H IV 01/26/25 18:00 01/27/25 17:26 5 MG Prochlorperazine Edisylate 5 mg Q4HPRN PRN IV 01/26/25 13:45 Sucralfate 1 gm QID@0600,1130,1700,2200 PO 01/26/25 22:00 01/28/25 06:04 1 GM Examination General Appearance: Cooperative. Well developed. Well nourished. NAD Head Exam: Normal inspection Neck Exam: Normal inspection. Non-tender. Normal alignment Pulmonary/Respiratory: Chest non-tender. Clear bilateral breath sounds Cardiovascular/Chest: Regular rate and rhythm. No murmurs. No JVD. Peripheral Pulses: 2+ Radial (R). 2+ Radial (L). 2+ Pedal (R). 2+ Pedal (L) Abdominal Exam: Normal bowel sounds. Soft. Nontender. No hepatospenomegaly. No masses Ankle Exam: Negative ankle edema Lower extremities: Negative lower extremity edema Neuro/Mental Status: A&O x4. Coherent Thoughts/Psych: Normal thought pattern. Appropriate mood and affect. Good judgement and insight Appearance: In no acute distress Skin Exam: Normal inspection. Normal color. Warm. Dry laboratory and microbiology Laboratory Tests 01/27/25 05:37 Test 01/27/25 05:37 Range/Units Serum Glucose 143 H 74-106 mg/dL Problem List/Assessment/Plan Problem List/Assessment/Plan Intractable nausea and vomiting likely due to medication side effects/Ozempic, cannabinoid induced Intractable epigastric pain likely related to above Rule out pancreatitis Severe dehydration MELY due to VMN due to above Reactive leukocytosis , no sepsis Metabolic alkalosis likely due to severe dehydration Uncontrolled diabetes mellitus type 2, HGB A1c 7.5. Insulin-dependent. On Ozempic. Hypercalcemia due to dehydration History of depression, no suicidal ideation Polysubstance abuse, positive for meth and cannabinoid Plan/recommendation EGD(01/28/25):1. 0.5 cm sliding-type hiatal hernia with grade a erosive esophagitis 2. [id number] gastritis otherwise normal examination up to the 2nd and 3rd part of the duodenum -CT abdomen and pelvis:1. No acute abdominal or pelvic finding. 2. Nondilated stomach and small bowel fluid-filled suggestive of possible gastroenteritis versus early adynamic ileus. 3. Severe osteoarthritic disease of the lumbar spine. -Protonix 40 mg BID, carafate 1 GM QID. -continue IV hydration with normal saline 50 mL/hour, kidney function, electrolytes including calcium improving, hypokalemia, replenished with IV potassium -uncontrolled hypertension: Lisinopril 20 mg p.o. daily. Nifedipine XL 60 mg p.o. daily. Labetalol 10 mg IV p.r.n. q.6 -uncontrolled diabetes mellitus, HGB A1c 7.5: Insulin-dependent dependent. Continue insulin sliding scale. Atorvastatin 40 mg p.o. daily. -antiemetic: Ondansetron 4 mg IV Q four p.r.n. for nausea and vomiting,metoclopramide and prochlorperazine. -counseled on drug cessation including meth and cannabinoids -PUD prophylaxis with enoxaparin -DVT prophylaxis with Protonix Goals of care discussed greater than 24 minutes, full code status. Plan discussed with Plan discussed with: Patient, Other (RN) My Orders My Orders Orders - TANIA HESTER RESIDENT Procedure Category Date Status Time Basic Metabolic Panel LAB 01/28/25 Verified 11:35 Dietary Evaluation Review Comments: CCHO-60 Cardiac Diet, advance to texture as tolerated when medically feasible. Expected Outcomes/Goals: Avoid drugs, improved nutrient utilization Date of Service: January 28, 2025 Billing Provider: HARINI THOMAS MD Common Visit Codes: [id number] INP/OBS CARE(HIGH) TANIA HESTER January 28, 2025 11:51 HARINI THOMAS MD January 28, 2025 17:57
[2025-01-28 12:37] LABS: Chloride 101 mmol/L (98-107)
[2025-01-28 12:39] LABS: Anion Gap 8 (5-15); Calcium 9.6 mg/dL (8.7-10.4); Carbon Dioxide 25 mmol/L (20-31)
[2025-01-28 12:43] LABS: Potassium 3.3 mmol/L (3.5-5.1); Sodium 134 mmol/L (136-145)
[2025-01-28 12:44] LABS: Blood Urea Nitrogen 12 mg/dL (9-23)
[2025-01-28 12:45] LABS: Glucose 157 mg/dL (74-106)
--- NOTE | 2025-01-28 16:43 | DVHPN2 ---
Progress Note - Dictate Date Seen: January 28, 2025 Medical Necessity Reason Pt with a Central, PICC or Fol: No Subjective Patient had poor appetite this morning but she was able to tolerate her lunch She has not had a bowel movement vital signs Vital Sign Date Time Temp Pulse Resp B/P (MAP) Pulse Ox O2 Delivery O2 Flow Rate FiO2 01/28/25 16:35 98.5 92 18 124/84 (97) 97 98.5 01/28/25 08:00 Room Air* 0 21 Total Intake and Output 01/27/25 01/27/25 01/28/25 15:00 23:00 07:00 Intake Total 0 ml 1000 ml Balance 0 ml 1000 ml medications Current Medications Medications Dose Ordered Sig/Kd Route Start Time Stop Time Status Last Admin Dose Admin Acetaminophen/ Hydrocodone Bitart 1 tab Q4HP PRN PO 01/20/25 16:00 Hold 01/26/25 10:05 1 TAB Ondansetron HCl 4 mg Q4HP PRN IV 01/20/25 16:00 01/24/25 06:20 4 MG Enoxaparin Sodium 40 mg DAILY SC 01/21/25 10:00 01/28/25 09:05 40 MG Acetaminophen 650 mg Q6HP PRN PO 01/20/25 16:00 01/27/25 22:04 650 MG Diagnostic Test (Pha) 1 strip ACHS 01/20/25 17:00 01/28/25 11:30 1 STRIP Insulin Human Regular ACHS SC 01/20/25 17:00 01/28/25 12:21 3 UNITS Dextrose 50 ml UD PRN IV 01/20/25 16:00 Sertraline HCl 50 mg DAILY PO 01/21/25 10:00 01/28/25 09:04 50 MG Labetalol HCl 10 mg Q4HPRN PRN IV 01/21/25 09:00 01/27/25 04:19 10 MG Sodium Chloride 1,000 ml @ 50 mls/hr Q20H IV 01/22/25 15:45 01/27/25 17:27 50 MLS/HR Nifedipine 60 mg DAILY PO 01/25/25 10:00 01/28/25 09:05 60 MG Atorvastatin Calcium 40 mg HS PO 01/24/25 22:00 01/27/25 21:56 40 MG Pantoprazole Sodium 40 mg BID IV 01/26/25 10:00 01/28/25 09:04 40 MG Lisinopril 40 mg DAILY PO 01/26/25 10:00 01/28/25 09:06 40 MG Hydralazine HCl 10 mg Q6HP PRN IV 01/26/25 12:30 01/27/25 12:26 10 MG Ketorolac Tromethamine 15 mg Q6HPRN PRN IV 01/26/25 12:30 01/31/25 12:29 01/27/25 12:26 15 MG Metoclopramide HCl 5 mg Q6H IV 01/26/25 18:00 01/28/25 12:11 5 MG Prochlorperazine Edisylate 5 mg Q4HPRN PRN IV 01/26/25 13:45 Sucralfate 1 gm QID@0600,1130,1700,2200 PO 01/26/25 22:00 01/28/25 12:11 1 GM objective General Appearance: Cooperative. Well developed. Well nourished. NAD Head Exam: Normal inspection Pulmonary/Respiratory: Chest non-tender. Clear bilateral breath sounds Cardiovascular/Chest: Regular rate and rhythm. No murmurs. No JVD. Abdominal Exam: Normal bowel sounds. Soft. Nontender. No hepatospenomegaly. No masses Lower extremities: Negative lower extremity edema Neuro/Mental Status: A&O x4. Coherent laboratory and microbiology Laboratory Tests 01/28/25 12:13 01/27/25 05:37 Test 01/28/25 12:13 Range/Units Serum Glucose 157 H 74-106 mg/dL Problems(with codes): (1) Gastritis (2) Leukocytosis (3) Cyclical vomiting (4) Intractable nausea Prognosis Plan Protonix 40 mg p.o. twice a day Carafate 1 g p.o. twice a day DC aspirin NSAIDs smoking alcohol MiraLax 17 g p.o. x1 dose Ambulate patient Discharge planning as per hospitalist Outpatient follow up with me in 4-6 weeks to discuss elective colonoscopy Dietary Evaluation Review Comments: CCHO-60 Cardiac Diet, advance to texture as tolerated when medically feasible. Expected Outcomes/Goals: Avoid drugs, improved nutrient utilization Plan discussed with: Other (Nurse) LAUREN GEORGE MD January 28, 2025 16:43
[2025-01-28] MEDS: POLYETHYLENE GLYCOL 17 GM PWDR PO ONE (19:39)
[2025-01-29 05:00] VITALS: BP 139/91; PULSE 82; TEMP 97.2; O2SAT 100
[2025-01-29 08:00] VITALS: PULSE 87; PULSE 96; RESP 18; O2SAT 98
[2025-01-29] MEDS: POTASSIUM CHL 20MEQ/100ML 100 ML IV SCH (08:45)
[2025-01-29 09:00] VITALS: BP 136/102; PULSE 96; RESP 18; TEMP 98.6; O2SAT 98
[2025-01-29 09:36] LABS: Chloride 100 mmol/L (98-107); Potassium 3.6 mmol/L (3.5-5.1)
[2025-01-29 09:37] LABS: Anion Gap 9 (5-15); Carbon Dioxide 27 mmol/L (20-31)
[2025-01-29 09:43] LABS: BUN/Creatinine Ratio 18.6 (10.0-20.0); Blood Urea Nitrogen 13 mg/dL (9-23)
[2025-01-29 09:44] LABS: Glucose 169 mg/dL (74-106); Magnesium 1.5 mg/dL (1.6-2.6); Sodium 136 mmol/L (136-145)
[2025-01-29 13:00] VITALS: BP 132/99; PULSE 83; RESP 18; TEMP 96.9; O2SAT 97
[2025-01-29] MEDS ORDERED: SUCR1SUS26 PO ×2 (15:10)
[2025-01-29] MEDS ORDERED: NIFE1TAB31 PO (15:10)
[2025-01-29] MEDS ORDERED: PANT40TA2 PO (15:10)
[2025-01-29 16:09] VITALS: BP 136/102; PULSE 92
[2025-01-29 17:00] VITALS: BP 136/85; PULSE 84; RESP 18; TEMP 98.7; O2SAT 100
[2025-01-29] MEDS ORDERED: MAGN400T40 PO (18:19)
--- NOTE | 2025-01-29 19:43 | DVHDSRES ---
Discharge Summary Date of Admission Resident Creating Document: TANIA HESTER RESIDENT January 20, 2025 at 15:59 Date of Discharge: January 29, 2025 Admitting Diagnosis nausea and vomiting Labs/Diagnostic Data: Laboratory Results Test 01/29/25 11:35 01/29/25 09:08 01/27/25 05:37 01/21/25 04:55 POC Glucose 214 mg/dl (70-106) Sodium Level 136 mmol/L (136-145) Potassium Level 3.6 mmol/L (3.5-5.1) Chloride Level 100 mmol/L (98-107) Carbon Dioxide Level 27 mmol/L (20-31) Anion Gap 9 (5-15) Blood Urea Nitrogen 13 mg/dL (9-23) Creatinine 0.70 mg/dL (0.550-1.02) Glomerular Filtration Rate Calc 105 mL/min (>90) BUN/Creatinine Ratio 18.6 (10.0-20.0) Serum Glucose 169 mg/dL (74-106) Calcium Level 10.0 mg/dL (8.7-10.4) Magnesium Level 1.5 mg/dL (1.6-2.6) White Blood Count 7.6 10^3/uL (4.4-10.8) Red Blood Count 4.77 10^6/uL (4.0-5.20) Hemoglobin 13.9 g/dL (12.2-16.2) Hematocrit 40.2 % (36.0-46.0) Mean Corpuscular Volume 84.3 fL (80.0-100.0) Mean Corpuscular Hemoglobin 29.1 pg (28.0-32.0) Mean Corpuscular Hemoglobin Concent 34.5 g/dL (32.0-36.0) Red Cell Distribution Width 13.8 % (11.8-14.3) Platelet Count 246 10^3/uL (140-450) Mean Platelet Volume 8.7 fL (6.9-10.8) Neutrophils (%) (Auto) 58.9 % (37.0-80.0) Lymphocytes (%) (Auto) 29.5 % (10.0-50.0) Monocytes (%) (Auto) 10.6 % (0.0-12.0) Eosinophils (%) (Auto) 0.7 % (0.0-7.0) Basophils (%) (Auto) 0.3 % (0.0-2.0) Neutrophils # (Auto) 4.5 10 ^3/uL (1.6-8.6) Lymphocytes # (Auto) 2.3 10 ^3/uL (0.4-5.4) Monocytes # (Auto) 0.8 10 ^3/uL (0-1.3) Eosinophils # (Auto) 0.1 10 ^3/uL (0-0.8) Basophils # (Auto) 0 10 ^3/uL (0-0.2) Nucleated Red Blood Cells 0.3 % Total Bilirubin 0.6 mg/dL (0.2-1.0) Aspartate Amino Transferase (AST) 13 U/L (13-40) Alanine Aminotransferase (ALT) 14 U/L (7-40) Alkaline Phosphatase 99 U/L (46-116) B-Type Natriuretic Peptide 10.85 pg/mL (0-100) Total Protein 7.0 g/dL (5.7-8.2) Albumin 4.6 g/dL (3.2-4.8) Triglycerides Level 224 mg/dL (< 150) Cholesterol Level 170 mg/dL (< 200) LDL Cholesterol 98 mg/dL (< 100) HDL Cholesterol 37 mg/dL (40-59) Lipase 48 U/L (12-53) Thyroid Stimulating Hormone (TSH) 1.83 uIU/mL (0.55-4.78) Parathyroid Hormone (Intact) 49.1 pg/mL (18.4-80.1) Test 01/20/25 14:15 01/20/25 14:01 Hemoglobin A1c 7.5 % A1C (<5.7) Urine Color Yellow (Yellow) Urine Clarity Turbid (Clear) Urine pH 5.5 (5.0-9.0) Urine Specific Secretary 1.024 (1.001-1.035) Urine Protein Trace (Negative) Urine Ketones Negative (Negative) Urine Blood Negative /uL (Negative) Urine Nitrite Negative (Negative) Urine Bilirubin Negative (Negative) Urine Urobilinogen Normal mg/dL (Negative) Urine Leukocyte Esterase Negative /uL (Negative) Urine RBC 1 /hpf (0 - 4) Urine Microscopic WBC 4 /HPF (0-5) Urine Squamous Epithelial Cells Mod /hpf (<5) Urine Bacteria Few /hpf (None Seen) Urine Hyaline Casts Few /lpf (0 - 2) Urine Mucus Few (None Seen) Urine Glucose 4+ mg/dL (Normal) Urine Test Negative (Negative) Urine Opiates Screen Neg (NEGATIVE) Urine Fentanyl Screen Neg (NEGATIVE) Urine Barbiturates Screen Neg (NEGATIVE) Urine Phencyclidine Screen Neg (NEGATIVE) Urine Amphetamines Screen Pos (NEGATIVE) Urine Benzodiazepines Screen Neg (NEGATIVE) Urine Cocaine Screen Neg (NEGATIVE) Urine Cannabinoids Screen Pos (NEGATIVE) Other Laboratory Tests 01/29/25 09:08 01/27/25 05:37 Brief Hx & Hospital Course: Patient is 50-year-old female with past medical history of diabetes mellitus, depression who came to the hospital with a chief complaint of intractable nausea and vomiting. As per patient she started on Ozempic three weeks ago, also smoking few joints every day of marijuana, came to the hospital with a chief complaint of intractable nausea and vomiting, mainly clear. Patient was started on IV fluid, conservative management with ondansetron/metoclopramide/prochlorperazine. Intractable nausea and vomiting did not improve. GI consultation was done. Underwent EGD which showed [id number] gastritis and grade a erosive esophagitis. Patient continually given IV Protonix, initiated on sucralfate as well. Patient was found to have marijuana with her at bedside, extensively counseled on stopped smoking marijuana given likely nausea and vomiting related to smoking. Over the course of hospitalization patient will continue treated symptomatically, nausea and vomiting improved. Patient was able to tolerate diet, therefore patient has been discharged home, advised to follow with primary care physician, follow up with PCP for potential discontinuation of Ozempic given possible side effect of upper GI upset. Patient understand, and agreed with the discharge plan. Patient has been discharged home. Condition at Discharge: Stable Final Diagnosis/Problems List Intractable nausea and vomiting due to acute gastritis and erosive esophagitis likely due to medication side effects/Ozempic, cannabinoid induced Intractable epigastric pain likely related to above Cannabinoid cyclic vomiting Rule out pancreatitis Severe dehydration MELY due to VMN due to above Reactive leukocytosis , no sepsis Metabolic alkalosis likely due to severe dehydration Uncontrolled diabetes mellitus type 2, HGB A1c 7.5. Insulin-dependent. On Ozempic. Hypercalcemia due to dehydration History of depression, no suicidal ideation Polysubstance abuse, positive for meth and cannabinoid Discharge Disposition: Home Discharge Instruct/Medications Diet: Regular Activity: No Restrictions, As Tolerated Follow Up/Referral: -follow up with pcp in 2 weeks Medications: see prescription Discharge Statement: "Patient was advised to return to the ER or call 911 if any headaches, dizziness, shortness of breath, chest pain, abdominal pain, bleeding, fevers, or worsening of medical condition. Patient was counseled about treatment plan, medications, possible side effects, patientverbalized understanding. All questions were answered to the best of my ability. This discharge took greater then 30 minutes in planning, reviewing documentation, counseling the patient, and discussing with other team members." ASSESSMENT ASSESSMENT Assessment esophagitis intractable nausea and vomiting cannbunoid induce cyclic vomiting Date of Service: January 29, 2025 Billing Provider: HARINI THOMAS MD Common Visit Codes: [id number] DISCH DAY >30min TANIA HESTER RESIDENT January 29, 2025 19:43 HARINI THOMAS MD January 29, 2025 22:42
--- NOTE | 2025-01-29 19:55 | DVHPN2 ---
Progress Note - Dictate Date Seen: January 29, 2025 Medical Necessity Reason Pt with a Central, PICC or Fol: No Subjective Patient seen at bedside She is ambulating Spouse is at the bedside EGD findings reviewed with patient vital signs Vital Sign Date Time Temp Pulse Resp B/P (MAP) Pulse Ox O2 Delivery O2 Flow Rate FiO2 01/29/25 17:00 98.7 84 18 136/85 (102) 100 98.7 01/29/25 08:00 Room Air* 0 21 Total Intake and Output 01/28/25 01/28/25 01/29/25 15:00 23:00 07:00 Intake Total 300 ml 630 ml Balance 300 ml 630 ml medications Current Medications Medications Dose Ordered Sig/Kd Route Start Time Stop Time Status Last Admin Dose Admin Acetaminophen/ Hydrocodone Bitart 1 tab Q4HP PRN PO 01/20/25 16:00 Hold 01/26/25 10:05 1 TAB Ondansetron HCl 4 mg Q4HP PRN IV 01/20/25 16:00 01/24/25 06:20 4 MG Enoxaparin Sodium 40 mg DAILY SC 01/21/25 10:00 01/29/25 09:58 40 MG Acetaminophen 650 mg Q6HP PRN PO 01/20/25 16:00 01/27/25 22:04 650 MG Diagnostic Test (Pha) 1 strip ACHS 01/20/25 17:00 01/29/25 11:42 1 STRIP Insulin Human Regular ACHS SC 01/20/25 17:00 01/29/25 11:48 4 UNITS Dextrose 50 ml UD PRN IV 01/20/25 16:00 Sertraline HCl 50 mg DAILY PO 01/21/25 10:00 01/29/25 09:57 50 MG Labetalol HCl 10 mg Q4HPRN PRN IV 01/21/25 09:00 01/27/25 04:19 10 MG Sodium Chloride 1,000 ml @ 50 mls/hr Q20H IV 01/22/25 15:45 01/27/25 17:27 50 MLS/HR Nifedipine 60 mg DAILY PO 01/25/25 10:00 01/29/25 09:57 60 MG Atorvastatin Calcium 40 mg HS PO 01/24/25 22:00 01/28/25 21:15 40 MG Pantoprazole Sodium 40 mg BID IV 01/26/25 10:00 01/29/25 09:40 40 MG Lisinopril 40 mg DAILY PO 01/26/25 10:00 01/29/25 09:57 40 MG Hydralazine HCl 10 mg Q6HP PRN IV 01/26/25 12:30 01/27/25 12:26 10 MG Ketorolac Tromethamine 15 mg Q6HPRN PRN IV 01/26/25 12:30 01/31/25 12:29 01/27/25 12: 15 MG Metoclopramide HCl 5 mg Q6H IV 01/26/25 18:00 01/29/25 11:42 5 MG Prochlorperazine Edisylate 5 mg Q4HPRN PRN IV 01/26/25 13:45 Sucralfate 1 gm QID@0600,1130,1700,2200 PO 01/26/25 22:00 01/29/25 11:42 1 GM objective General Appearance: Cooperative. Well developed. Well nourished. NAD Head Exam: Normal inspection Pulmonary/Respiratory: Chest non-tender. Clear bilateral breath sounds Cardiovascular/Chest: Regular rate and rhythm. No murmurs. No JVD. Abdominal Exam: Normal bowel sounds. Soft. Nontender. No hepatospenomegaly. No masses Lower extremities: Negative lower extremity edema Neuro/Mental Status: A&O x4. Coherent laboratory and microbiology Laboratory Tests 01/29/25 09:08 01/27/25 05:37 Test 01/29/25 09:08 Range/Units Serum Glucose 169 H 74-106 mg/dL Problems(with codes): (1) Gastritis (2) Leukocytosis (3) Cyclical vomiting (4) Hypokalemia (5) Intractable nausea Prognosis PLAN 1. Await for biopsy result 2. Will place pt on Protonix 40 mg bid 3. Carafate 1 g p.o. twice a day 4. DC aspirin NSAIDs smoking alcohol 5. Resume soft mechanical diet advance as tolerated 6. Outpatient follow up with me in 4-6 weeks to review results and discuss further management 7. patient advised to discontinue alcohol smoking marijuana 8. Outpatient follow up with me in 2-4 weeks after discharge 9. Discharge planning is in progress Dietary Evaluation Review Comments: CCHO-60 Cardiac Diet, advance to texture as tolerated when medically feasible. Expected Outcomes/Goals: Avoid drugs, improved nutrient utilization Plan discussed with: Patient, Spouse LAUREN GEORGE MD January 29, 2025 19:55
== END 2025-01-29 18:24 | disposition home or self-care (01) | DRG 241 ==
LOC: ER 12:53 → OVERFLOW 15:59 → EAST 23:52 → TELE-EAST 01-22 05:45
PROVIDERS: ADMIT Internal Medicine; ATTEND Internal Medicine Gastroenterology
PROC: 0DB48ZX Excision of Esophagogastric Junction, Via Natural or Artificial Opening Endoscopic, Diagnostic (ICD-10-PCS; 2025-01-27)
PROC: 0DB98ZX Excision of Duodenum, Via Natural or Artificial Opening Endoscopic, Diagnostic (ICD-10-PCS; 2025-01-27)
PROC: 0DB68ZX Excision of Stomach, Via Natural or Artificial Opening Endoscopic, Diagnostic (ICD-10-PCS; principal; 2025-01-27 15:25)
DX: K29.00 Acute gastritis without bleeding (principal); N17.0 Acute kidney failure with tubular necrosis; K85.90 Acute pancreatitis without necrosis or infection, unspecified; E87.3 Alkalosis; E11.9 Type 2 diabetes mellitus without complications; D72.829 Elevated white blood cell count, unspecified; K22.10 Ulcer of esophagus without bleeding; F12.10 Cannabis abuse, uncomplicated; F15.10 Other stimulant abuse, uncomplicated; F19.10 Other psychoactive substance abuse, uncomplicated; E83.52 Hypercalcemia; E86.0 Dehydration; E87.6 Hypokalemia; F41.9 Anxiety disorder, unspecified; K44.9 Diaphragmatic hernia without obstruction or gangrene; T40.725A Adverse effect of synthetic cannabinoids, initial encounter; F17.210 Nicotine dependence, cigarettes, uncomplicated; Z98.891 History of uterine scar from previous surgery; Z79.4 Long term (current) use of insulin; Y92.89 Other specified places as the place of occurrence of the external cause
CPT/HCPCS: 36415; 71045; 74018; 74176; 80048; 80053; 80061; 80307; 81001; 81025; 82962; 83036; 83690; 83735; 83880; 83970; 84443; 85025; 96361; 96365; 96375; 99291; G0378; J1815; J1885; J2250; J2405; J2470; J3480; J3490